=== PATIENT | female | born 1955 | race Caucasian/White ===

== ENCOUNTER → 2017-09-20 16:53 | Outpatient (CLI) | payer OTHER, SELFPAY ==
--- NOTE | 2017-09-20 09:00 | ASPS_PTH ---
PATIENT: MARCELLO OKEEFE [facility][id number] AGE/SX: 70/F ROOM: RE09/20/[address]: Dr. Gómez Tovar MD : [id number] BED: DIS: SPEC #: [id number] RECD: 09/20/17 16:40 STATUS: GRABIEL NIKKI #: [id number] ANANT: 09/20/17 09:[address]: Gómez Tovar DEPT: CYTOLOGY RECD BY: Mert Gottlieb Tissues: A - Thyroid gland, NOS B - Thyroid gland, NOS C - Thyroid isthmus Procedures: Pap Stain (control) Special Stain Group II Cytology Other HEADER OPERATION: Thyroid FNA x3 PRE-OP DIAGNOSIS: Multiple thyroid nodules TISSUE SUBMITTED: A ? Right thyroid (4 slides), B ? Left thyroid (8 slides), C ? Isthmus (6 slides) DIAGNOSIS CYTOLOGY A. Fine needle aspiration, right thyroid nodule (smears): Adequate for evaluation. Negative, consistent with benign follicular nodule. B. Fine needle aspiration, left thyroid nodule (smears): Adequate for evaluation. Negative, consistent with benign follicular nodule. C. Fine needle aspiration, isthmus (smears): Adequate for evaluation. Atypical follicular cells are present. AM:waylon 09/22/17 CYTOLOGY STUDY Slides are reviewed. CYTOLOGY GROSS A - Received are four smears labeled with the patient's name and designated per the requisition as right thyroid. Submitted for staining. B - Received are eight smears labeled with the patient's name and designated per the requisition as left thyroid. Submitted for staining. C - Received are six smears labeled with the patient's name and designated per the requisition as isthmus. Submitted for staining. 09/21/17 TC:? CPT: 10806 x3
== END ==
PROVIDERS: Visit Provider Surgery
DX: E04.1 Nontoxic single thyroid nodule (principal)
CPT/HCPCS: 88161; 88313

== ENCOUNTER → 2018-04-19 12:09 | Outpatient (CLI) | payer OTHER, MEDICARE, SELFPAY ==
[2018-04-19 14:28] LABS: PTHIN 43.2 pg/mL (18.4-80.1)
[2018-04-19 14:39] LABS: AST(SGOT) 20 U/L (15-37); Alanine Aminotransfer ALT/SGPT 25 U/L (13-56); Albumin, Serum 3.5 g/dL (3.2-5.0); Alkaline Phosphatase 93 U/L (45-117); Anion Gap 10 (5-15); BUN 13 mg/dL (7-18); BUN/Creat Ratio 13.7 RATIO (10-20); Calcium,Total 8.8 mg/dL (8.5-10.1); Chloride 104 mmol/L (98-107); Creatinine, Serum 0.95 mg/dL (0.55-1.02); EST Glomerular Filtration Rate 63 mL/min (>60); Est Glom Filt Rate - Afr Amer 76 mL/min (>60); Globulin 3.6 g/dL (2.2-4.2); Glucose 98 mg/dL (74-106); Potassium 3.7 mmol/L (3.5-5.1); Protein, Total 7.1 g/dL (6.4-8.2); Sodium Level 142 mmol/L (136-145); Thyroid Stim Hormone (TSH) 0.82 uIU/mL (0.358-3.74)
[2018-04-20 12:12] LABS: Vitamin D,25 Hydroxy 26.9 ng/mL (29.95-100.01)
== END ==
PROVIDERS: PCP Family Medicine; Visit Provider Internal Medicine Endocrinology, Diabetes & Metabolism
DX: E04.2 Nontoxic multinodular goiter (principal); E55.9 Vitamin D deficiency, unspecified; E21.5 Disorder of parathyroid gland, unspecified; M85.9 Disorder of bone density and structure, unspecified
CPT/HCPCS: 36415; 80053; 82306; 83970; 84443

== ENCOUNTER → 2018-04-21 11:07 | Outpatient (CLI) | payer MEDICARE, OTHER, SELFPAY ==
[2018-04-21 13:49] LABS: Calcium Urine pH Range 2
[2018-04-21 13:50] LABS: 24HR UR TOTAL VOLUME 2000 ml; Urine Calcium (Random) 13.5 (Not Estab.)
[2018-04-27 15:49] LABS: 24HR. Urine Creatinine 1.05 g/24 HR (0.70-1.90)
== END ==
PROVIDERS: Family Provider Family Medicine; PCP Family Medicine; Visit Provider Internal Medicine Endocrinology, Diabetes & Metabolism
DX: E04.2 Nontoxic multinodular goiter (principal); E21.5 Disorder of parathyroid gland, unspecified; M85.9 Disorder of bone density and structure, unspecified; E55.9 Vitamin D deficiency, unspecified
CPT/HCPCS: 81050; 82340; 82570

== ENCOUNTER → 2018-04-22 11:08 | Outpatient (CLI) | payer MEDICARE, OTHER, SELFPAY ==
[2018-04-22 12:58] LABS: 24Hr.Lytes Total Volume 1450 mL
[2018-04-22 12:59] LABS: Sodium 24 HR UR 74 mmol/24h (40-220); Urine Sodium 51 mmol/L (Not Establ.)
== END ==
PROVIDERS: Internal Medicine Endocrinology, Diabetes & Metabolism; Family Provider Family Medicine; PCP Family Medicine; Visit Provider Family Medicine
DX: E04.2 Nontoxic multinodular goiter (principal); E55.9 Vitamin D deficiency, unspecified; E21.5 Disorder of parathyroid gland, unspecified; M85.9 Disorder of bone density and structure, unspecified
CPT/HCPCS: 81050; 82436; 84133; 84300

== ENCOUNTER → 2018-06-03 11:28 | Outpatient (CLI) | payer MEDICARE, SELFPAY ==
[2018-06-03 16:47] LABS: Anion Gap 7 (5-15); BUN 11 mg/dL (7-18); BUN/Creat Ratio 12.7 RATIO (10-20); Calcium,Total 8.4 mg/dL (8.5-10.1); Chloride 107 mmol/L (98-107); Creatinine, Serum 0.87 mg/dL (0.55-1.02); EST Glomerular Filtration Rate 70 mL/min (>60); Est Glom Filt Rate - Afr Amer 85 mL/min (>60); Glucose 109 mg/dL (74-106); Potassium 4.1 mmol/L (3.5-5.1); Sodium Level 142 mmol/L (136-145); Thyroid Stim Hormone (TSH) 0.14 uIU/mL (0.358-3.74)
== END ==
PROVIDERS: Family Provider Family Medicine; PCP Family Medicine; Visit Provider Internal Medicine Endocrinology, Diabetes & Metabolism
DX: E89.0 Postprocedural hypothyroidism (principal)
CPT/HCPCS: 36415; 80048; 84443

== ENCOUNTER → 2018-07-26 15:19 | Outpatient (CLI) | payer MEDICARE, OTHER, SELFPAY ==
[2018-07-26 19:35] LABS: Vitamin D,25 Hydroxy 33.4 ng/mL (29.95-100.01)
[2018-07-26 19:36] LABS: AST(SGOT) 23 U/L (15-37); Alanine Aminotransfer ALT/SGPT 31 U/L (13-56); Albumin, Serum 3.5 g/dL (3.2-5.0); Alkaline Phosphatase 121 U/L (45-117); Anion Gap 9 (5-15); BUN 14 mg/dL (7-18); BUN/Creat Ratio 16.3 RATIO (10-20); Calcium,Total 8.5 mg/dL (8.5-10.1); Chloride 106 mmol/L (98-107); Creatinine, Serum 0.86 mg/dL (0.55-1.02); EST Glomerular Filtration Rate 70 mL/min (>60); Est Glom Filt Rate - Afr Amer 85 mL/min (>60); Globulin 3.6 g/dL (2.2-4.2); Glucose 69 mg/dL (74-106); Potassium 3.9 mmol/L (3.5-5.1); Protein, Total 7.1 g/dL (6.4-8.2); Sodium Level 144 mmol/L (136-145); Thyroid Stim Hormone (TSH) 0.44 uIU/mL (0.358-3.74)
--- OUTSIDE RECORDS SUMMARY | 2018-10-28 04:09 | XMS RPT_ITS ---
:1955 Author Organization OHIP Support Name Relationship Address Phone [facility] Unavailable [address] + [place] [address] VÍCTOR BUTCHER Unavailable Unavailable + [place] [address] [facility] Unavailable [address] + [place] [address] VÍCTOR BUTCHER Unavailable Unavailable + [place] [address] [facility] Unavailable [address] + [place] [address] VÍCTOR BUTCHER Unavailable Unavailable + [place] [address] [facility] Unavailable [address] + [place] [address] VÍCTOR BUTCHER Unavailable Unavailable + [place] [address] [facility] Unavailable [address] + [place] [address] VÍCTOR BUTCHER Unavailable Unavailable + [place] [address] [facility] Unavailable [address] + [place] [address] VÍCTOR BUTCHER Unavailable . + [place] [address] [facility] Unavailable [address] + [place] [address] VÍCTOR BUTCHER Unavailable . + [place] [address] [facility] Unavailable [address] + [place] [address] VÍCTOR BUTCHER Unavailable . + [place] [address] [facility] Unavailable [address] + [place] [address] MALDONADO VÍCTOR Unavailable Unavailable + [place] [address] [facility] Unavailable Unavailable + [place] [address] Care Team Providers Name Role Phone TAM BELL Attending Unavailable Glenn Figueroa Primary Care Unavailable Cebul, Gómez Attending Unavailable Cebul, Gómez Attending Unavailable Cebul Gómez Referring Unavailable Cebul, Gómez Attending Unavailable Schinner, Glenn E Primary Care Unavailable DOCTOR, OUT OF TOWN Attending Unavailable Guy, Gómez Attending Unavailable JohninGlenn vicente Referring Unavailable WANDA VICTORIA Attending Unavailable JULIEN, WANDA Attending Unavailable Carolina, Glenn Pinto Primary Care Unavailable Glenn Figueroa Attending Unavailable Glenn Figueroa Primary Care Unavailable JULIEN, WANDA Attending Unavailable Glenn Figueroa Primary Care Unavailable VÍCTOR MOROCHO MD Attending Unavailable NASIM TOLEDO DO Consulting Unavailable VÍCTOR MOROCHO MD Admitting Unavailable KARLA BURNS, DR. NICOLE Schmitz Consulting Unavailable SABINA SQUIRES DO Consulting Unavailable VÍCTOR MOROCHO MD Consulting Unavailable Víctor Morocho Attending Unavailable PROBLEMS PROBLEMS DATE TYPE CONDITION / CODE ATTENDING STATUS SOURCE 08/25/2018 Unknown E89.0 - DOCTOR, OUT OF Active [place] Postprocedural [facility] hypothyroidism / Hospital E89.0(ICD-10) Repository 06/14/2018 Unknown E04.2 - Nontoxic Glenn Figueroa Active [place] multinodular goiter [facility] / E04.2(ICD-10) Hospital Repository 04/19/2018 Unknown E55.9 - Vitamin D WIETECHA, Active [place] deficiency, [facility] unspecified / Hospital E55.9(ICD-10) Repository 04/19/2018 Unknown 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, 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, [facility] unspecified / Hospital E21.5(ICD-10) Repository 04/19/2018 Unknown M85.9 - Disorder of WIETECHA, Active [place] bone density and [facility] structure, Hospital unspecified / Repository M85.9(ICD-10) 03/17/2018 Admitting Unknown / Gareth Morocho Medical diagnosis UNK(Unknown) Víctor Carrillo [facility] Repository PROCEDURES PROCEDURES No Procedure Records FoundRESULTS RESULTS MISCELLANEOUS LAB Collected: 07/29/2018 Status: F Source: [place] PROCEDURE 12:00 AM [facility] REPOSITORY Order Comment: PATIENT INDICATED THAT THE SAMPLE WAS FROM SECOND VOID OF THE DAY PER [facility] Comments: #[id number] COLLOGEN CROSS LINKED URINE 20ML RF Test(s) Ordered: #[id number] COLLOGEN CROSS LINKED URINE 20ML RF TYPE CODE TESTS RESULT OUT OF RANGE REFERENCE UNITS LAB L801.1541 Normal [facility] TEST Result Comment: TEST RESULT UNITS REF INTERVAL N-Telopeptide, Urine N-telopeptide 113 nmol BCE Not Estab. Creatinine, Urine 51.5 mg/dL Not Estab. N-telo/Creat. Ratio 25 nM BCE/mM Cr 0 - 89 Interpretive Guide: The N-telopeptide and Creatinine are used to calculate the N-telo/Creat. Ratio which is referred to as NTx. Suggested guidelines for the clinical use of NTx are as follows: 1. Menopausal Women not on Hormone Replacement Therapy (HRT): Women with a baseline NTx value >38 are at significant risk for a decrease in bone mineral density (BMD) after 1 year compared to women on HRT. The probability of a decline in BMD increases with NTx value as follows: (1): Baseline NTx Probability of Decrease in BMD 18- 38 1.4 p=0.28 38- 51 2.5 p=0.03 51- 67 3.8 p=0.0006 67-188 17.3 p=0.0001 2. Menopausal Women Receiving Antiresorptive Therapy: The probability that treatment is effective after three months is increased when the measured NTx value is <or=38 nM BCE/mM REMEDY DEVELOPER, or NTx has decreased >or=30% from baseline.[1] 3. Patients with Paget's Disease of Bone: The probability that treatment is effective after one month is increased when the measured NTx value is within the reference range, or NTx has decreased >or=30% from baseline.[2] 1. Tim CH, Radha NH, Manan GS, et al. Am J Med, 102:29-37,1997. (1):M757, 1996. 2. Bone H, Pratima Carrillo, et al. J Bone Min Res.11 (1):M757,1996 TESTING PERFORMED AT [facility]. ORIGINAL REPORT ON FILE IN LAB CONTAINS ADDITIONAL TEST SITE INFORMATION. Performed By: #### L801.1541 #### [facility] [address] [place], [address] VITAMIN D,25 HYDROXY Collected: 07/26/2018 Status: F Source: [place] 3:25 PM [facility] REPOSITORY TYPE CODE TESTS RESULT OUT OF RANGE REFERENCE UNITS LAB L506.1000 29.95-100.01 ng/mL Normal Vitamin D 33.4 25-OH Result Comment: Vitamin D 25(OH) Status Range Deficiency <20 ng/mL (50nmol/L) Insuffciency 20 - 30 ng/mL (50 - 75 nmol/L) Sufficiency 30 - 100 ng/mL (75 - 250 nmol/L) Toxicity >100 ng/mL (>250 nmol/L) Performed By: #### L506.1000 #### [facility] [address] [facility] [place], [address] COMPREHENSIVE METABOLIC Collected: 07/26/2018 Status: F Source: [facility] 3:25 PM [facility] REPOSITORY TYPE CODE TESTS RESULT OUT OF RANGE REFERENCE UNITS LAB L501.0100 74-106 mg/dL Low GLU 69 Result Comment: Please note revised GLUCOSE reference range effective 2017. LAB L501.1000 7-18 mg/dL Normal BUN 14 LAB L501.1100 0.55-1.02 mg/dL Normal CREAT,SERUM 0.86 Result Comment: The validity of the calculated GFR AND GFRAA in patients over 70 years has not been determined. Clinical correlation is essential. LAB L501.1110 >60 mL/min Normal EST GFR 70 Result Comment: Non- GFR Calc LAB L501.1115 >60 mL/min Normal EST GFR - AA 85 Result Comment: GFR Calc LAB L501.1300 10-20 RATIO Normal BUN/CRE 16.3 LAB L501.1500 6.4-8.2 g/dL T Normal PROT 7.1 LAB L501.1800 3.2-5.0 g/dL Normal ALB 3.5 LAB L501.1950 2.2-4.2 g/dL Normal GLOB 3.6 LAB L501.2000 0.9-2.4 RATIO Normal A/G 1.0 LAB L501.2200 8.5-10.1 mg/dL CA Normal 8.5 LAB L501.4100 15-37 U/L Normal AST 23 LAB L501.4305 45-117 U/L High ALK P 121 LAB L501.4405 13-56 U/L Normal ALT 31 LAB L501.4600 0.20-1.00 mg/dL T Normal BILI 0.20 LAB L501.5300 136-145 mmol/L NA Normal 144 LAB L501.5600 3.5-5.1 mmol/L K Normal 3.9 LAB L501.5900 98-107 mmol/L CL Normal 106 LAB L501.6100 21.0-32.0 mmol/L Normal CO2 29.0 LAB L501.6200 5-15 Normal GAP 9 Performed By: #### L500.4050, L501.9520 #### [facility] [address] [place], [place], [address] THYROID STIM HORMONE Collected: 07/26/2018 Status: F Source: [place] (TSH) 3:25 PM [facility] REPOSITORY TYPE CODE TESTS RESULT OUT OF RANGE REFERENCE UNITS LAB L501.9520 0.358-3.74 uIU/mL Normal TSH 0.44 Performed By: #### L500.4050, L501.9520 #### [facility] [address] [place], [place], [address] BASIC METABOLIC Collected: 06/03/2018 Status: F Source: [place] PROFILE (BMP) 11:35 AM [facility] REPOSITORY TYPE CODE TESTS RESULT OUT OF RANGE REFERENCE UNITS LAB L501.0100 74-106 mg/dL High GLU 109 Result Comment: Fasting Glucose result from 100 to 125 mg/dL suggests IMPAIRED HOMEOSTASIS per A.D.A. criteria. Please note revised GLUCOSE reference range effective 2017. LAB L501.1000 7-18 mg/dL Normal BUN 11 LAB L501.1100 0.55-1.02 mg/dL Normal CREAT,SERUM 0.87 Result Comment: The validity of the calculated GFR AND GFRAA in patients over 70 years has not been determined. Clinical correlation is essential. LAB L501.1110 >60 mL/min Normal EST GFR 70 Result Comment: Non- GFR Calc LAB L501.1115 >60 mL/min Normal EST GFR - AA 85 Result Comment: GFR Calc LAB L501.1300 10-20 RATIO Normal BUN/CRE 12.7 LAB L501.2200 8.5-10.1 mg/dL Low CA 8.4 LAB L501.5300 136-145 mmol/L NA Normal 142 LAB L501.5600 3.5-5.1 mmol/L K Normal 4.1 LAB L501.5900 98-107 mmol/L CL Normal 107 LAB L501.6100 21.0-32.0 mmol/L Normal CO2 28.0 LAB L501.6200 5-15 Normal GAP 7 Performed By: #### L500.2500, L501.9520 #### [facility] [address] [facility]. [place], [place], [address] THYROID STIM HORMONE Collected: 06/03/2018 Status: F Source: [place] (TSH) 11:35 AM [facility] REPOSITORY TYPE CODE TESTS RESULT OUT OF RANGE REFERENCE UNITS LAB L501.9520 0.358-3.74 uIU/mL Low TSH 0.14 Performed By: #### L500.2500, L501.9520 #### [facility] [address] [facility] [place], [address] ELECTROLYTES, 24 HR UR Collected: 04/22/2018 Status: F Source: [place] 12:00 AM [facility] REPOSITORY Order Comment: COLLECTION TIME 930 04/21/18 SPECIFIC FOR SODIUM 24HR 950 04/22/18 TYPE CODE TESTS RESULT OUT OF RANGE REFERENCE UNITS LAB L501.5290 mL 1450 Normal UR TOTAL VOLUME LAB L501.5500 Not Establ. mmol/L 51 Normal UR NA LAB L501.5525 40-220 mmol/24h 74 Normal UR NA/24HR LAB L501.5800 Not Establ. mmol/L Test Normal UR K not performed LAB L501.5825 25-125 mmol/24h Test Normal UR K/24 not performed HR LAB L501.6000 Not Establ. mmol/L Test Normal UR CL not performed LAB L501.6025 110-250 mmol/24h Test Normal UR CL/24 not performed hr Performed By: #### L501.5280 #### [facility] [address] [facility]. [place], [place], [address] CALCIUM, URINE 24HR Collected: 04/21/2018 Status: F Source: [place] 12:00 AM [facility] REPOSITORY TYPE CODE TESTS RESULT OUT OF RANGE REFERENCE UNITS LAB L501.2280 Normal Calcium UR pH 2 LAB L501.2281 24.0-24.0 HR Normal UR Collect 24.0 Time LAB L501.2288 ml Normal UR Total 2000 Volume LAB L501.2290 Not Estab. Normal Urine Calcium 13.5 LAB L501.2293 42.0-353.0 mg/24 HR Normal 24HR UR 270.0 Calcium Performed By: #### L500.7000 #### [facility] [address] [facility]. [place], [place], [address] 24 HR URINE CREATININE Collected: 04/21/2018 Status: C Source: [place] 12:00 AM [facility] REPOSITORY TYPE CODE TESTS RESULT OUT OF RANGE REFERENCE UNITS LAB L502.0100 24.0 HOURS Normal UR COLLECT 24.0 TIME LAB L502.0200 L Normal UR TOTAL 2.00 VOLUME Result Comment: AMENDED REPORT 04/27/18 1540 UR TOTAL VOLUME previously reported as: 2000.00 L LAB L502.0300 NO RANGE mg/dL Normal EST. URINE 52.70 CREAT LAB L502.0400 0.70-1.90 g/24 HR Normal 1.05 UR.CREAT/24h r Result Comment: AMENDED REPORT 04/27/18 154 UR.CREAT/24hr previously reported as: 1054.00 H g/24 HR ENTERED INCORRECTLY Performed By: #### L502.000 #### [facility] [address] [place], [address] PTHIN Collected: 04/19/2018 Status: F Source: [place] 12:14 PM [facility] REPOSITORY TYPE CODE TESTS RESULT OUT OF RANGE REFERENCE UNITS LAB L509.1000 18.4-80.1 pg/mL Normal PTHIN 43.2 Performed By: #### L509.1000 #### [facility] [address] [place], [address] COMPREHENSIVE METABOLIC Collected: 04/19/2018 Status: F Source: [facility] 12:14 PM [facility] REPOSITORY TYPE CODE TESTS RESULT OUT OF RANGE REFERENCE UNITS LAB L501.0100 74-106 mg/dL Normal GLU 98 Result Comment: Please note revised GLUCOSE reference range effective 2017. LAB L501.1000 7-18 mg/dL Normal BUN 13 LAB L501.1100 0.55-1.02 mg/dL Normal CREAT,SERUM 0.95 Result Comment: The validity of the calculated GFR AND GFRAA in patients over 70 years has not been determined. Clinical correlation is essential. LAB L501.1110 >60 mL/min Normal EST GFR 63 Result Comment: Non- GFR Calc LAB L501.1115 >60 mL/min Normal EST GFR - AA 76 Result Comment: GFR Calc LAB L501.1300 10-20 RATIO Normal BUN/CRE 13.7 LAB L501.1500 6.4-8.2 g/dL T Normal PROT 7.1 LAB L501.1800 3.2-5.0 g/dL Normal ALB 3.5 LAB L501.1950 2.2-4.2 g/dL Normal GLOB 3.6 LAB L501.2000 0.9-2.4 RATIO Normal A/G 1.0 LAB L501.2200 8.5-10.1 mg/dL CA Normal 8.8 LAB L501.4100 15-37 U/L Normal AST 20 LAB L501.4305 45-117 U/L Normal ALK P 93 LAB L501.4405 13-56 U/L Normal ALT 25 LAB L501.4600 0.20-1.00 mg/dL T Normal BILI 0.40 LAB L501.5300 136-145 mmol/L NA Normal 142 LAB L501.5600 3.5-5.1 mmol/L K Normal 3.7 LAB L501.5900 98-107 mmol/L CL Normal 104 LAB L501.6100 21.0-32.0 mmol/L Normal CO2 28.0 LAB L501.6200 5-15 Normal GAP 10 Performed By: #### L500.4050, L501.9520 #### [facility] [address] [place], [address] THYROID STIM HORMONE Collected: 04/19/2018 Status: F Source: [place] (TSH) 12:14 PM [facility] REPOSITORY TYPE CODE TESTS RESULT OUT OF RANGE REFERENCE UNITS LAB L501.9520 0.358-3.74 uIU/mL Normal TSH 0.82 Performed By: #### L500.4050, L501.9520 #### [facility] [address] [facility] [place], [address] VITAMIN D,25 HYDROXY Collected: 04/19/2018 Status: F Source: [place] 12:14 PM [facility] REPOSITORY TYPE CODE TESTS RESULT OUT OF REFERENCE UNITS RANGE LAB L506.1000 29.95-100.01 ng/mL Low Vitamin D 26.9 25-OH Result Comment: Vitamin D 25(OH) Status Range Deficiency <20 ng/mL (50nmol/L) Insuffciency 20 - 30 ng/mL (50 - 75 nmol/L) Sufficiency 30 - 100 ng/mL (75 - 250 nmol/L) Toxicity >100 ng/mL (>250 nmol/L) Performed By: #### L506.1000 #### [facility] [address] [place], [address] CAION Collected: 04/14/2018 Status: F Source: [facility] 6:26 AM [facility] REPOSITORY TYPE CODE TESTS RESULT OUT OF REFERENCE UNITS RANGE LAB CAION(LOINC 1.12-1.32 mmol/L ) Calcium 1.20 Ionized Performed By: #### CAILUCINA #### [place] [address] PHYLICIA Collected: 04/13/2018 Status: F Source: [facility] 5:57 PM [facility] REPOSITORY TYPE CODE TESTS RESULT OUT OF REFERENCE UNITS RANGE LAB PHYLICIA(LOINC 1.12-1.32 mmol/L ) Low Calcium 1.09 Ionized Performed By: #### CAILUCINA #### [place] [address] FINAL SURGICAL Observed: 04/13/2018 Status: F Source: [facility] PATHOLOGY REPORT 10:00 AM [facility] REPOSITORY . Pathology Reports Accession: Collected Date/Time: Received Date/Time: Pathologist: [id number] 04/13/2018 10:00 EDT 04/13/2018 12:44 EDT MD MARGRET CRONIN Final Surgical Pathology Report DIAGNOSIS: THYROID, TOTAL THYROIDECTOMY: - LYMPHOCYTIC THYROIDITIS WITH MULTINODULAR FOLLICULAR HYPERPLASIA. CLINICAL INFORMATION: Procedure: TOTAL THYROIDECTOMY Preoperative diagnosis: MULTINODULAR (CYSTIC) GOITER NOT OTHERWISE SPECIFIED Postoperative diagnosis: MULTINODULAR (CYSTIC) GOITER NOT OTHERWISE SPECIFIED SPECIMEN: A THYROID - TOTAL GROSS DESCRIPTION: Received in formalin labeled total thyroid is an 18 g, 7.1 x 4.2 x 2 cm product of a total thyroidectomy. There is a long stitch marking the left lobe and a short stitch marking the right lobe. The outer surface is red and ranges from smooth to rough. The specimen is inked and sectioned to show multiple red-ramsey glistening and gelatinous appearing nodules measuring up to 1.2 cm in greatest dimension. The surrounding parenchyma is dark red and shows usual fine architecture. RS -10 1 -4 left lobe 5 -6 isthmus 7 -10 right lobe Dictated by Sridevi LUIS ([facility]) MICROSCOPIC DESCRIPTION: Slides reviewed. Electronically Signed by Pathology Report verified by [facility] Electronically signed by MARGRET CRONIN MD Sign out Date: 04/15/2018 10:14 Performing Lab: [address] Performed By: #### SPFR #### [place] [address] SURGERY VISIT REPORT Observed: 10/01/2017 Status: F Source: [place] 4:57 PM [facility] REPOSITORY [facility] [address] [place] [address] OFFICE VISIT Date of Service: 10/01/17 MR#: [id number] Acct: [id number] Name: BRENDA BUTCHER Rep #: [id number] : 1955 Provider: Gómez Tovar MD Age/Sex: 62/F Location: [facility] Status: Signed Intake Intake Visit Reasons: Post Op Thyroid FNA Chief Complaint: post thyroid FNA x3 Cold Patcher Required: No Is patient in pain?: No Allergies Iodine and Iodide Containing Produc Allergy (Mild, Verified 09/20/17 08:59) rash Sulfa (Sulfonamide Antibiotics) Allergy (Mild, Verified 09/20/17 08:59) rash Medications calcium carbonate 500 mg calcium (1,250 mg) tablet 500 mg PO BID tab 08/31/17 [History Confirmed 09/20/17] ergocalciferol (vitamin D2) 50,000 unit capsule 50,000 unit PO QDAY 08/31/17 [History Confirmed 09/20/17] Is last menstrual period known: No Post menopausal: Yes Patient : No PFSH Medical History Hemorrhoids (Acute) Thyromegaly (Acute) Surgical History S/P skin cancer resection (Acute) S/P thyroid biopsy (Acute) S/P tonsillectomy (Acute) Family History Sister Thyroid disorder Diabetes Mother Thyroid disorder Diabetes Father Colon cancer Social History Smoking Status: Never smoker alcohol intake: never HPI HPI HPI: BRENDA BUTCHER, is a 62 F who presents to the office today for surgical follow-up status post ultrasound-guided fine-needle aspiration of 3 thyroid nodules. Fine-needle aspiration was performed on September 20, 2017. The cytology of the dominant right thyroid nodule was consistent with a benign follicular nodule. The cytology of the left thyroid nodule was consistent with a benign follicular nodule. However the results of the isthmus nodule was atypical follicular cells present. At previous notes reflect the following: MR#:[id number]:[id number] Name: Mihir Butchervishnu #:[id number] : 1955 Provider:Gómez Tovar MD Age/Sex: 62/F Location:[facility] Status:Signed Intake Vital Signs 08/31/17 Blood Pressure 136/94 08/31/17 Height 5 ft 5 in 08/31/17 Weight: 170 lb 8 oz 08/31/17 Body Mass Index (BMI) 28.3 08/31/17 Blood Pressure 169/109 08/31/17 Blood Pressure Location Lt brachial 08/31/17 Blood Pressure Position Sitting 08/31/17 Respiratory Rate 20 08/31/17 Pulse Rate 64 08/31/17 Pulse Ox 100 Intake Visit Reasons: Thyroid Nodules Chief Complaint: thyroid nodules Cold Patcher Required: No Is patient in pain?: No Allergies Iodine and Iodide Containing Produc Allergy (Mild, Verified 08/31/17 13:31) rash Sulfa (Sulfonamide Antibiotics) Allergy (Mild, Verified 08/31/17 13:31) rash Medications calcium carbonate 500 mg calcium (1,250 mg) tablet 500 mg PO BID tab 08/31/17 [History Confirmed 08/31/17] ergocalciferol (vitamin D2) 50,000 unit capsule 50,000 unit PO QDAY 08/31/17 [History Confirmed 08/31/17] Is last menstrual period known: No Post menopausal: Yes Patient : No PFSH Medical History Hemorrhoids (Acute) Thyromegaly (Acute) Surgical History S/P skin cancer resection (Acute) S/P tonsillectomy (Acute) Family History Sister Thyroid disorder Diabetes Mother Thyroid disorder Diabetes Father Colon cancer Social History Smoking Status: Never smoker alcohol intake: never HPI HPI HPI: Brenda Butcher, is a 62 F who presents to the office today for surgical consultation regarding abnormal clinical exam of the thyroid with subsequent ultrasound demonstrating multiple nodules. She has a family history of thyroid disease. Mother had goiter and had surgery. His sister has goiter. She has another sister who is routine annual follow-ups. She has had 2 nieces who have had thyroid cancer. She herself has no symptoms. No neck pain. No dysphagia. No hoarseness. She has not had any radiation treatment. She really establish care with Dr. Merlos. He detected a thyroid abnormality and recommended a thyroid ultrasound which was obtained at the [facility] on August 16, 2017. Findings suggest that there is a 9 mm nodule in the right. In the isthmus there is a 1.5 cm nodule and on the left there is a 1 cm nodule ROS General General: No weight change, appetite, fatigue, colon cancer, breast cancer or weakness HEENT HEENT: No difficulty swallowing, eye injury, eye surgery, swollen glands or hoarseness Endo Endocrine: No thyroid disease, diabetes mellitus, thyroid cancer, Hair loss, heat intolerance or cold intolerance Skin Skin: Yes changing moles; no rash Breast Breast: No left breast lump, right breast lump, nipple discharge, breast pain, abnormal mammogram, abnormal US or breast enlargement Musc Musculoskeletal: No back problems, arthritis, rheumatoid arthritis, gout or joint pain Cardio Cardiovascular: No murmur, pacemaker, heart disease, atrial fibrillation, high blood pressure, heart attack, heart stent, palpitations, shortness of breat with exertion or chest pain Psych Psychiatric: No depression, anxiety or hearing voices Resp Respiratory: No shortness of breath, No sleep apnea, No cough, No COPD, No asthma, No emphysema, No wheezing Gastro Gastrointestinal: No abdominal pain, No nausea or vomiting, No diarrhea, No constipation, No blood in stool, No acid reflux, Yes hemorrhoids, No ulcers, No gallbladder problem, No black,tarry stools Nathan Hematologic: No blood thinners, No blood disorders, No bleeding, No anemia, No blood clots Neuro Neurologic: No system reviewed and no additional complaints, except as docu, No as per HPI, No abnormal walking, No abnormal hearing, No abnormal movements, No abnormal speech, No behavioral changes, No burning sensations, No confusion, No seizure-like activity, No unsteadiness, No dizziness, No localized weakness, No frequent falls, No headache(s), No lack of coordination, No loss of vision, No memory loss, No numbness, No other visual disturbances, No radiating pain, No restless legs, No sensory deficit, No fainting, No tingling, No tremor(s), No weakness, No other Exam Const General: cooperative, healthy appearing, comfortable [facility] Head: normal to inspection Eyes General: appearance normal, both eyes and all related structures Neck Neck: no lymphadenopathy Neck mass: No Carotids: normal carotid upstroke, no bruits Lymphatic: no lymphadenopathy noted Other: Thyroid can be palpated. Slight nodularity particular involving the isthmus. Not seemingly grossly enlarged. Chest Breast Palpation: No nipple discharge Resp Effort AND Inspection: normal respiratory effort Auscultation: clear to auscultation bilaterally Cardio Rate: regular rate Rhythm: regular rhythm Heart Sounds: no murmurs Neuro Other: Chvostek negative Assessment AND Plan 1. Multiple thyroid nodules E04.2 Plan 62-year-old female with multiple thyroid nodules. She has had a 9 millimeter nodule in the right and a 1.5 cm isthmus and a 1cm nodule in the left. I am recommending to her an ultrasound-guided fine-needle aspiration of these nodules. We have discussed the technique, benefits, risks, alternatives. I believe that the procedure has very low risk and that she would be benefited by cytologic evaluation. She has had an opportunity to ask and have questions answered. We will schedule and proceed at her discretion. Additional note the August 11, 2017 TSH was 0.94 and free T4 was 0.88 both within normal range. Cc: Dr. Figueroa. Gómez Tovar M.D., F.A.C.S. Coding Level of Care Code Off vis,new,level 2 Diagnoses Multiple thyroid nodules E04.2 08/31/17 1410<Electronically signed by Gómez Tovar MD> Date Gómez Tovar MD Assessment AND Plan 1. Multiple thyroid nodules E04.2 Plan Today was a 30 minute [id number] consultative appointment. The patient is accompanied with her . We discussed the cytology particularly of the isthmus nodule being atypical. The patient has 2 nieces who had thyroid cancer. We thoroughly discussed treatment options. We discussed total thyroidectomy. The patient is aware then of subsequent need for thyroid replacement. We discussed technique, benefits, risks, alternatives. We discussed the mandatory need for thyroid replacement. We discussed more limited surgical treatment within the potential for redo surgery. At the conclusion of the appointment my recommendation is for total thyroidectomy. She is particularly aware of the potential risks of injury to the recurrent laryngeal nerve or parathyroids. She would like to have an opportunity to discuss with her the proposed options. She will recontact my office with a decision as to how she would like to proceed. I appreciate the ongoing opportunity of assisting with her surgical care Gómez Tovar M.D., F.A.C.S. cc:Dr Figueroa Coding Level of Care Code Off vis,est,level 2 Diagnoses Multiple thyroid nodules E04.2 10/01/17 1657 <Electronically signed by Gómez Tovar MD> Date Gómez Tovar MD Cosigner Signature: Date (if applicable) CC: Glenn Figueroa MD SURGERY VISIT REPORT Observed: 09/20/2017 Status: F Source: [place] 9:33 AM [facility] [address] [place] [address] OFFICE VISIT Date of Service: 09/20/17 MR#: [id number] Acct: [id number] Name: Brenda Butcher Rep #: [id number] : 1955 Provider: Gómez Tovar MD Age/Sex: 62/F Location: [facility] Status: Signed Intake Intake Visit Reasons: BILATERAL X3 THYROID FNA Chief Complaint: thyroid FNA x3 Cold Patcher Required: No Is patient in pain?: No Allergies Iodine and Iodide Containing Produc Allergy (Mild, Verified 09/20/17 08:59) rash Sulfa (Sulfonamide Antibiotics) Allergy (Mild, Verified 09/20/17 08:59) rash Medications calcium carbonate 500 mg calcium (1,250 mg) tablet 500 mg PO BID tab 08/31/17 [History Confirmed 09/20/17] ergocalciferol (vitamin D2) 50,000 unit capsule 50,000 unit PO QDAY 08/31/17 [History Confirmed 09/20/17] Is last menstrual period known: No Post menopausal: Yes Patient : No PFSH Medical History Hemorrhoids (Acute) Thyromegaly (Acute) Surgical History S/P skin cancer resection (Acute) S/P thyroid biopsy (Acute) S/P tonsillectomy (Acute) Family History Sister Thyroid disorder Diabetes Mother Thyroid disorder Diabetes Father Colon cancer Social History Smoking Status: Never smoker alcohol intake: never HPI HPI HPI: Brenda Butcher, is a 62 F who presents to the office today for ultrasound and fine-needle aspiration thyroid nodules 3 Office Procedures FNA Thyroid Performed By: Procedure performed by: allegra Details: Procedure note Ultrasound fine-needle aspiration right thyroid 9 mm nodule and isthmus 1.5 similar nodule and left thyroid 1 cm nodule Timeout and informed consent was obtained. The patient was taken to procedure room. She was placed on the table. The neck was sterilely prepped and draped. 1% lidocaine mixed 50-50 with 0.5% Marcaine was used as a local anesthetic. The right thyroid nodule is identified. Local was instilled. A 25-gauge needle was advanced into the lesion and a rapid pzdx-pwl-wrfdo motion performed. 2 separate passes were performed what appeared to be solid cystic lesion of the right thyroid. A similar technique was used for the isthmus nodule which appeared to be dominant and solid. 3 separate passes were performed if that. The left thyroid lesion appear to have tiny microcalcifications. 4 separate passes were performed of that lesion. With each set of passes specimen was smeared out on slides and treated with fixative. She tolerated procedure well. She was given activity wound care instructions. She will be notified of cytology results as they become available. The isthmus nodule appeared to be uniformly solid. The left thyroid nodule had microcalcifications present. If the cytology is benign then would consider follow-up thyroid ultrasound at 6 months. Gómez Tovar M.D., F.A.C.S. 82597 x 3 Procedure Time Out Time Out Informed consent given: Yes Consent signed: Yes Time out checklist: patient, procedure, site marked/identified, positioning of patient, supplies available, allergies confirmed, team agrees on procedure Time out staff in room: Yes Time out verified: Yes Time out date: 09/20/17 Time out time: 08:59 Assessment AND Plan 1. Multiple thyroid nodules E04.2 Plan The patient will be notified of cytology results as they become available. See the procedure note. Consider follow-up thyroid ultrasound 6 months. Gómez Tovar M.D., F.A.C.S. Orders Orders: Coding Level of Care Code No Charge Diagnoses Multiple thyroid nodules E04.2 Comment 53393 x 3 09/20/17 0933 <Electronically signed by Gómez Tovar MD> Date Gómez Tovar MD Cosigner Signature: Date (if applicable) CC: ASPIRATION (SLIDES Observed: 09/20/2017 Status: F Source: [facility]ILY[place] ONLY) 9:00 AM [facility] REPOSITORY Patient: BRENDA BUTCHER : 1955 (62/F) Acct Num: [id number] Phys: Guy LOZANO,Gómez Unit Num: [id number] Loc: LABSPEC Specimen: [id number] Received: 09/20/171639 Spec Type: ASPIRATION TISSUES TISSUES: A. Thyroid gland, NOS B. Thyroid gland, NOS C. Thyroid isthmus CYTOLOGY GROSS A - Received are four smears labeled with the patient's name and designated per the requisition as right thyroid. Submitted for staining. B - Received are eight smears labeled with the patient's name and designated per the requisition as left thyroid. Submitted for staining. C - Received are six smears labeled with the patient's name and designated per the requisition as isthmus. Submitted for staining. 09/21/17 TC:? CPT: 27137 x3 CYTOLOGY STUDY Slides are reviewed. DIAGNOSIS CYTOLOGY A. Fine needle aspiration, right thyroid nodule (smears): Adequate for evaluation. Negative, consistent with benign follicular nodule. B. Fine needle aspiration, left thyroid nodule (smears): Adequate for evaluation. Negative, consistent with benign follicular nodule. C. Fine needle aspiration, isthmus (smears): Adequate for evaluation. Atypical follicular cells are present. AM:waylon 09/22/17 HEADER OPERATION: Thyroid FNA x3 PRE-OP DIAGNOSIS: Multiple thyroid nodules TISSUE SUBMITTED: A Right thyroid (4 slides), B Left thyroid (8 slides), C Isthmus (6 slides) Signed Artemio Tong 09/22/17 <signature on file> Performed By: #### PASPS #### [facility] [place], [address] ALLERGIES ALLERGIES DATE TYPE / CODE NAME / CODE REACTION SEVERITY SOURCE 09/20/2017 Drug Iodine and Iodide Rash [facility] Allergy/416 Containing Community 524339(SNOM Produc/[id number] Hospital ED CT) (RXNORM) Repository 09/20/2017 Drug Sulfa Rash [facility] Allergy/416 (Sulfonamide Community 550042(SNOM Antibiotics)/F[address]) 227917(RXNORM) Repository ENCOUNTERS ENCOUNTERS ADMIT/DISCHARGE ACCOUNT NUMBER ADMITTING ENCOUNTER LOCATION SOURCE CLASS 07/29/2018 [id number] [facility] ding:LABSPEC Repository 07/26/2018 [id number] [facility] ding:MFPLAB Repository 06/03/2018 [id number] [facility] ding:MFPLAB Repository 04/22/2018 [id number] [facility] ding:LABSPEC Repository 04/21/2018 [id number] [facility] ding:LABSPEC Repository 04/19/2018 [id number] [facility] ding:MFPLAB Repository 04/13/2018/04/14/20 [id number] BAILEE LOZANO, Ambulatory ABuilding:[place] Bryan BUTTS 6ERoom: [place] [address]Bed: A Foundation Repository 03/17/2018 [id number] Inpatient [facility] CenterBuildi Repository ng:H.OR 10/01/2017/10/01/19 [id number] Ambulatory BMSBuilding: [place] 18 BMS.[facility] Repository 09/28/2017 [id number] Ambulatory BMSBuilding: [place] BMS.[facility] Repository 09/20/2017 [id number] Ambulatory [facility] ding:LABSPEC Repository 09/20/2017/09/20/19 [id number] Ambulatory BMSBuilding: [place] 18 BMS.[facility] Repository PAYERS PAYERS ENCOUNTER GUARANTOR PAYER SUBSCRIBER SOURCE 07/29/2018 BRENDA QUINONEZ Primary BRENDA [place] [address] Insurance:MEDICARE PAUSLEYDOB: [place] PART A [facility] [id number] Hospital [address]Mtl: (863) Number: Repository [phone] () [id number] Date:2018-07-29 07/29/2018 Secondary BRENDA Ailyn Insurance:MEDICAL PAUSLEYDOB: [facility] [id number] Hospital Number: Repository [id number] Date:8170-94-07SZ [address] [address]XL: 07/29/2018 Tertiary NOT GIVENUNK [place] Insurance:SELF PAY [facility] Number: Effective Repository Date:2018-07-29 07/26/2018 BRENDA QUINONEZ Primary BRENDA [address] Insurance:MEDICARE PAUSLEYDOB: [place] PART A [facility] [id number] Hospital [address]Dyu: (863) Number: Repository [phone] () [id number] Date:2018-07-26 07/26/2018 Secondary BRENDA [place] Insurance:MEDICAL PAUSLEYDOB: [facility] [id number] Hospital Number: Repository [id number] Date:7745-00-75SL [address] [address]YK: 07/26/2018 Tertiary NOT GIVENUNK [place] Insurance:SELF PAY [facility] Hospital Number: Effective Repository Date:2018-07-26 06/03/2018 BRENDA QUINONEZ Primary BRENDA [place] [address] Insurance:MEDICARE PAUSLEYDOB: [place] PART A [facility] [id number] Hospital [address]Fty: (863) Number: Repository [phone] () [id number] Date:2018-06-03 06/03/2018 Secondary NOT GIVENUNK Ailyn Insurance:SELF PAY [facility] Hospital Number: Effective Repository Date:2018-06-03 04/22/2018 BRENDA QUINONEZ Primary BRENDA [place] [address] Insurance:MEDICARE PAUSLEYDOB: [place] PART A [facility] [id number] Hospital [address]Whp: (863) Number: Repository [phone] () [id number] Date:2018-04-21 04/22/2018 Secondary BRENDA [place] Insurance:MEDICAL PAUSLEYDOB: [facility] [id number] Hospital Number: Repository [id number] Date:8649-79-76NO[address] [address]KK: 04/22/2018 Tertiary NOT GIVENUNK Ailyn Insurance:SELF PAY [facility] Hospital Number: Effective Repository Date:2018-04-21 04/21/2018 BRENDA BUTCHER17 Primary BRENDA Ailyn [address] Insurance:MEDICARE PAUSLEYDOB: [place] PART A [facility] [id number] Hospital [address]Ffr: (863) Number: Repository [phone] () [id number] Date:2018-04-21 04/21/2018 Secondary BRENDA Ailyn Insurance:MEDICAL PAUSLEYDOB: [facility] [id number] Hospital Number: Repository [id number] Date:4726-81-11IR[address] [address]LZ: 04/21/2018 Tertiary NOT GIVENUNK [place] Insurance:SELF PAY [facility] Number: Effective Repository Date:2018-04-21 04/19/2018 BRENDA BUTCHER17 Primary BRENDA Ailyn Bernardo Insurance:MEDICAL PAUSLEYDOB: [facility] [id number] Hospital [address]Jbj: (863) Number: Repository [phone] () [id number] Date:7546-29-29CM [address] [place] [address]ZH: 04/19/2018 Secondary BRENDA [place] Insurance:MEDICARE PAUSLEYDOB: [facility] [id number] Hospital Number: Repository [id number] Date:2018-04-19 04/19/2018 Tertiary NOT GIVENUNK A[place]n Insurance:SELF PAY [facility] Number: Effective Repository Date:2018-04-19 04/13/2018 BRENDA J Primary [facility] PAUSLEYDOB: Insurance:MEDICARE PAUSLEYDOB: [facility] PART B [facility] [id number] Repository JESSICA CLARK, Number: [place] [address]Xit: [id number] [place], [place] Date:2018-03-09 [address]Kjz: [phone] (WD) [id number] Name:[facility] ()Tel: (000) Administrators LLCPO 000-0000 (WP) [address] [place] [address]LQ: 04/13/2018 Secondary [facility] Insurance:MEDICAL PAUSLEYDOB: [facility] [id number] Repository INSC[employer]icy Number: Jackelyn [place] [id number] [place], [place] Date:2017-02-20 346[address]Jul: (452) [id number] [phone] Name:BPO BOX ()Tel: (000) [address] [place], [place] 000-0000 (WP) [address]NZ: 10/01/2017 BRENDA BUTCHER17 Primary BRENDA Ailyn [address] Insurance:MEDICAL PAUSLEYDOB: [facility] [id number] Hospital [address]Cji: (863) Number: Repository [phone] () [id number] Date:6739-09-71[place] [address]301[address]WP: 10/01/2017 Secondary NOT GIVENUNK Ailyn Insurance:SELF PAY [facility] Number: Effective Repository Date:2017-09-24 09/28/2017 BRENDA BUTCHER17 Primary BRENDA [place] [address] Insurance:MEDICAL PAUSLEYDOB: [facility] [id number] Hospital [address]Nek: (863) Number: Repository [phone] () [id number] Date:6886-76-11AG [address] [address]ZG: 09/28/2017 Secondary NOT GIVENUNK A[place]n Insurance:SELF PAY [facility] Number: Effective Repository Date:2017-09-23 09/20/2017 BRENDA BUTCHER17 Primary BRENDA Ailyn [address] Insurance:MEDICAL PAUSLEYDOB: [facility] [id number] Hospital [address]Jgb: (863) Number: Repository [phone] () [id number] Date:6005-04-65WQ [address] [address]SU: 09/20/2017 Secondary NOT GIVENUNK Ailyn Insurance:SELF PAY [facility] Number: Effective Repository Date:2017-09-20 09/20/2017 Brenda Butcher17 Primary Brenda Ailyn [address] Insurance:MEDICAL PausleyDOB: [facility] [id number] Hospital [address]Vqx: (863) Number: Repository [phone] () [id number] Date:6140-19-78QI [address] [address]XQ: 09/20/2017 Secondary NOT GIVENUNK Ailyn Insurance:SELF [facility]Y [facility]: Effective Repository Date:2017-08-31
== END ==
PROVIDERS: Family Provider Family Medicine; PCP Family Medicine
DX: E89.0 Postprocedural hypothyroidism (principal); E55.9 Vitamin D deficiency, unspecified; M81.0 Age-related osteoporosis without current pathological fracture
CPT/HCPCS: 36415; 80053; 82306; 84443

== ENCOUNTER → 2018-07-29 15:04 | Outpatient (CLI) | payer MEDICARE, OTHER, SELFPAY | PROVIDERS: PCP Family Medicine | DX: E89.0 Postprocedural hypothyroidism (principal); M81.0 Age-related osteoporosis without current pathological fracture; E55.9 Vitamin D deficiency, unspecified ==

== ENCOUNTER → 2018-11-30 13:33 | Outpatient (CLI) | payer MEDICARE, OTHER, SELFPAY ==
[2018-11-30 14:39] LABS: Thyroid Stim Hormone (TSH) 0.25 uIU/mL (0.358-3.74)
== END ==
PROVIDERS: Family Provider Family Medicine; PCP Family Medicine; Referring Provider Family Medicine; Visit Provider Internal Medicine Endocrinology, Diabetes & Metabolism
DX: E89.0 Postprocedural hypothyroidism (principal)
CPT/HCPCS: 36415; 84443

== ENCOUNTER → 2019-01-18 09:19 | Outpatient (CLI) | payer MEDICARE, OTHER, SELFPAY ==
[2019-01-18 10:32] LABS: Thyroid Stim Hormone (TSH) 1.96 uIU/mL (0.358-3.74)
== END ==
PROVIDERS: Family Provider Family Medicine; PCP Family Medicine; Referring Provider Family Medicine; Visit Provider Internal Medicine Endocrinology, Diabetes & Metabolism
DX: E89.0 Postprocedural hypothyroidism (principal)
CPT/HCPCS: 36415; 84443

== ENCOUNTER → 2019-04-07 11:21 | Outpatient (CLI) | payer MEDICARE, OTHER, SELFPAY ==
[2019-04-07 14:04] LABS: Vitamin D,25 Hydroxy 31.1 ng/mL (29.95-100.01)
[2019-04-07 14:05] LABS: AST(SGOT) 19 U/L (15-37); Alanine Aminotransfer ALT/SGPT 20 U/L (13-56); Albumin, Serum 3.6 g/dL (3.2-5.0); Alkaline Phosphatase 96 U/L (45-117); Anion Gap 6 (5-15); BUN 15 mg/dL (7-18); BUN/Creat Ratio 16.4 RATIO (10-20); Calcium,Total 8.9 mg/dL (8.5-10.1); Chloride 107 mmol/L (98-107); Creatinine, Serum 0.92 mg/dL (0.55-1.02); EST Glomerular Filtration Rate 65 mL/min (>60); Est Glom Filt Rate - Afr Amer 79 mL/min (>60); Globulin 3.6 g/dL (2.2-4.2); Glucose 103 mg/dL (74-106); Potassium 3.7 mmol/L (3.5-5.1); Protein, Total 7.2 g/dL (6.4-8.2); Sodium Level 143 mmol/L (136-145); Thyroid Stim Hormone (TSH) 1.06 uIU/mL (0.358-3.74)
== END ==
PROVIDERS: Family Provider Family Medicine; PCP Family Medicine; Referring Provider Family Medicine; Visit Provider Internal Medicine Endocrinology, Diabetes & Metabolism
DX: E89.0 Postprocedural hypothyroidism (principal); E55.9 Vitamin D deficiency, unspecified
CPT/HCPCS: 36415; 80053; 82306; 84443

== ENCOUNTER → 2019-06-30 14:51 | Outpatient (CLI) | payer MEDICARE, OTHER, SELFPAY | PROVIDERS: Family Provider Family Medicine; PCP Family Medicine; Referring Provider Family Medicine; Visit Provider Family Medicine | DX: R39.9 Unspecified symptoms and signs involving the genitourinary system (principal) | CPT/HCPCS: 87086 ==

== ENCOUNTER → 2019-07-19 17:13 | Outpatient (CLI) | payer MEDICARE, OTHER, SELFPAY ==
--- NOTE | 2019-07-19 17:18 | RAD_ITS ---
HISTORY: shoulder pain ADDITIONAL HISTORY: None provided. TECHNIQUE: Left shoulder 4 views Number of images including paperwork: 4 COMPARISON: None FINDINGS: BONES: No acute fracture. JOINTS: No subluxation. SOFT TISSUES: No distinct foreign body. RAD/Shoulder min 2 Views IMPRESSION: No acute osseous abnormality. at 0426 Reported and signed by: Nighat Camp MD Electronically Signed: Nighat Camp MD at 4:26 EST Tel , Service support ,
--- NOTE | 2019-07-19 17:18 | RAD_ITS ---
HISTORY: hip pain ADDITIONAL HISTORY: None provided. TECHNIQUE: AP and lateral views of the right hip, AP and lateral views of the left hip and AP pelvis. Number of images including paperwork: 5 COMPARISON: None FINDINGS: BONES: No acute fracture. Degenerative changes of the sepsis pubis. JOINTS: No subluxation. SOFT TISSUES: No distinct foreign body. Calcification adjacent to the right greater tuberosity may indicate calcific tendinitis. RAD/Hips B/L min 2 views w/ Pelvis IMPRESSION: No acute osseous abnormality. at 0789 Reported and signed by: Nighat Camp MD Electronically Signed: Nighat Camp MD at 4:25 EST Tel , Service support ,
--- NOTE | 2019-07-19 17:18 | RAD_ITS ---
HISTORY: shoulder pain ADDITIONAL HISTORY: None provided. TECHNIQUE: Right shoulder 4 views Number of images including paperwork: 4 COMPARISON: None FINDINGS: BONES: No acute fracture. JOINTS: No subluxation. Mild degenerative changes. SOFT TISSUES: No distinct foreign body. Right neck surgical clips. RAD/Shoulder min 2 Views IMPRESSION: Degenerative changes without acute osseous abnormality. at 0428 Reported and signed by: Nighat Camp MD Electronically Signed: Nighat Camp MD at 4:28 EST Tel , Service support ,
== END ==
PROVIDERS: Family Provider Family Medicine; PCP Family Medicine; Referring Provider Family Medicine; Visit Provider Family Medicine
DX: M19.011 Primary osteoarthritis, right shoulder (principal); M25.512 Pain in left shoulder; M25.552 Pain in left hip; M25.551 Pain in right hip
CPT/HCPCS: 73030; 73521

== ENCOUNTER → 2019-09-08 15:42 | Outpatient (CLI) | payer MEDICARE, OTHER, SELFPAY ==
[2019-09-08 17:45] LABS: Absolute Lymphocyte Count 2.05 X10^3/uL (0.83-4.51); Absolute Neutrophil Count 4.8 X10^3/uL (2.0-7.7); Basophil# 0.09 X10^3/uL; Basophil% 1.2 % (0-1); Eosinophil# 0.21 X10^3/uL; Eosinophils% 2.7 % (0-5); Hematocrit 38.7 % (37-47); Lymphocyte # 2.05 X10^3/ul (4.0); Lymphocyte % 26.7 % (19-41); Mean Corpuscular Hgb 29.6 pg (27.0-32.0); Mean Corpuscular Volume 95.6 fL (81-99); Mean Platelet Vol. 10.2 fl (6.2-12.0); Monocyte% 6.5 % (0-10); NRBC Flagged by Analyzer 0 % (0-5); Neutrophil # 4.83 X10^3/uL (2.7-7.7); Neutrophil % 62.8 % (47-70); Platelet Count 294 K/mm3 (150-450); RBC Distribution Width CV 13.1 % (11.6-14.6); RBC Distribution Width SD 46.4 fl (35.1-43.9); Red Blood Count 4.05 M/mm3 (4.2-5.4); White Blood Count 7.7 K/mm3 (4.4-11.0)
[2019-09-08 17:48] LABS: ALB/GLOB Ratio 0.8 RATIO (0.9-2.4); AST(SGOT) 23 U/L (15-37); Alanine Aminotransfer ALT/SGPT 22 U/L (13-56); Albumin, Serum 3.4 g/dL (3.2-5.0); Alkaline Phosphatase 101 U/L (45-117); Anion Gap 3 (5-15); BUN 20 mg/dL (7-18); BUN/Creat Ratio 23.8 RATIO (10-20); CRP 5.08 mg/L (0.0-3.0); Calcium,Total 8.9 mg/dL (8.5-10.1); Chloride 104 mmol/L (98-107); Creatinine, Serum 0.84 mg/dL (0.55-1.02); EST Glomerular Filtration Rate 72 mL/min (>60); Est Glom Filt Rate - Afr Amer 87 mL/min (>60); Globulin 4.3 g/dL (2.2-4.2); Glucose 85 mg/dL (74-106); Potassium 3.6 mmol/L (3.5-5.1); Protein, Total 7.7 g/dL (6.4-8.2); Sodium Level 138 mmol/L (136-145)
[2019-09-08 17:54] LABS: Vitamin D,25 Hydroxy 50.6 ng/mL (29.95-100.01)
[2019-09-08 17:58] LABS: Erythrocyte Sedimentation Rate 24 mm/hr (0-30)
[2019-09-08 18:05] LABS: PTHIN 40.2 pg/mL (18.4-80.1)
== END ==
PROVIDERS: PCP Family Medicine; Referring Provider Family Medicine; Visit Provider Internal Medicine Endocrinology, Diabetes & Metabolism
DX: E89.0 Postprocedural hypothyroidism (principal); M81.0 Age-related osteoporosis without current pathological fracture; E55.9 Vitamin D deficiency, unspecified; M15.8 Other polyosteoarthritis; E04.2 Nontoxic multinodular goiter
CPT/HCPCS: 36415; 80053; 82306; 83970; 85025; 85652; 86140

== ENCOUNTER → 2019-09-21 08:53 | Outpatient (CLI) | payer MEDICARE, OTHER, SELFPAY ==
[2019-09-21 10:31] LABS: Rheumatoid Factor < 10.0 IU/mL (<15)
[2019-09-21 10:38] LABS: ALB/GLOB Ratio 0.9 RATIO (0.9-2.4); AST(SGOT) 20 U/L (15-37); Alanine Aminotransfer ALT/SGPT 21 U/L (13-56); Albumin, Serum 3.9 g/dL (3.2-5.0); Alkaline Phosphatase 94 U/L (45-117); Anion Gap 5 (5-15); BUN 20 mg/dL (7-18); BUN/Creat Ratio 22.1 RATIO (10-20); CRP 2.93 mg/L (0.0-3.0); Chloride 104 mmol/L (98-107); Creatinine, Serum 0.91 mg/dL (0.55-1.02); EST Glomerular Filtration Rate 66 mL/min (>60); Est Glom Filt Rate - Afr Amer 80 mL/min (>60); Globulin 4.2 g/dL (2.2-4.2); Glucose 82 mg/dL (74-106); Potassium 3.6 mmol/L (3.5-5.1); Protein, Total 8.1 g/dL (6.4-8.2); Sodium Level 138 mmol/L (136-145); Thyroid Stim Hormone (TSH) 2.73 uIU/mL (0.358-3.74)
[2019-09-22 13:47] LABS: ANTINUCLEAR ANTIBODIES DIRECT Positive (Negative)
== END ==
PROVIDERS: Internal Medicine Endocrinology, Diabetes & Metabolism; PCP Family Medicine; Referring Provider Family Medicine; Visit Provider Family Medicine
DX: E89.0 Postprocedural hypothyroidism (principal); M15.8 Other polyosteoarthritis; M25.50 Pain in unspecified joint
CPT/HCPCS: 36415; 80053; 84443; 86038; 86140; 86431

== ENCOUNTER → 2019-12-20 10:13 | Outpatient (CLI) | payer MEDICARE, OTHER, SELFPAY ==
--- NOTE | 2019-12-20 10:19 | RAD_ITS ---
STUDY: X-RAY - PELVIS REASON FOR EXAM: Female, 64 years old. Inflammatory polyarthropathy TECHNIQUE: One view of the pelvis was obtained. COMPARISON: None. FINDINGS: There is a non-specific bowel gas pattern. There are multiple calcified phleboliths. Normal bilateral iliac wings, sacroiliac joints and visualized sacrum. Normal visualized bilateral superior and inferior pubic rami. There is narrowing with sclerosis of the pubic symphysis. Normal ischial tuberosities. Normal visualized right femoral head. Normal right acetabulum. Normal right hip joint. Normal visualized left femoral head. Normal left acetabulum. Normal left hip joint. RAD/Pelvis 1 or 2 Views IMPRESSION: Degenerative changes of the symphysis pubis. Electronically Signed: Vargas Monson, at 10:42 EDT , Service support ,
[2019-12-20 11:22] LABS: EXAGEN MAILED SPECIMEN
[2019-12-20 12:39] LABS: Erythrocyte Sedimentation Rate 4 mm/hr (0-30)
[2019-12-20 12:41] LABS: Absolute Lymphocyte Count 2.06 X10^3/uL (0.83-4.51); Absolute Neutrophil Count 4.5 X10^3/uL (2.0-7.7); Basophil% 1.4 % (0-1); Eosinophil# 0.13 X10^3/uL; Eosinophils% 1.8 % (0-5); Hemoglobin 14.5 g/dL (12.0-15.0); Lymphocyte # 2.06 X10^3/ul (4.0); Lymphocyte % 28.1 % (19-41); Mean Corp Hgb Conc 32.2 g/dL (32-36); Mean Corpuscular Hgb 31.5 pg (27.0-32.0); Mean Corpuscular Volume 97.6 fL (81-99); Mean Platelet Vol. 10.5 fl (6.2-12.0); Monocyte# 0.55 X10^3/uL; Monocyte% 7.5 % (0-10); NRBC Flagged by Analyzer 0 % (0-5); Neutrophil # 4.47 X10^3/uL (2.7-7.7); Neutrophil % 60.9 % (47-70); Platelet Count 233 K/mm3 (150-450); RBC Distribution Width CV 13.2 % (11.6-14.6); Red Blood Count 4.61 M/mm3 (4.2-5.4); White Blood Count 7.3 K/mm3 (4.4-11.0)
[2019-12-20 12:49] LABS: Protein, Urine (Random) < 6.0 mg/dL (<11.9)
[2019-12-20 12:51] LABS: ALB/GLOB Ratio 1.1 RATIO (0.9-2.4); AST(SGOT) 23 U/L (15-37); Alanine Aminotransfer ALT/SGPT 26 U/L (13-56); Albumin, Serum 4.1 g/dL (3.2-5.0); Alkaline Phosphatase 88 U/L (45-117); Anion Gap 6 (5-15); BUN 15 mg/dL (7-18); BUN/Creat Ratio 17.5 RATIO (10-20); CRP < 2.90 mg/L (0.0-3.0); Calcium,Total 9.3 mg/dL (8.5-10.1); Chloride 104 mmol/L (98-107); Creatinine, Serum 0.86 mg/dL (0.55-1.02); EST Glomerular Filtration Rate 70 mL/min (>60); Est Glom Filt Rate - Afr Amer 85 mL/min (>60); Globulin 3.9 g/dL (2.2-4.2); Glucose 87 mg/dL (74-106); Potassium 3.4 mmol/L (3.5-5.1); Sodium Level 140 mmol/L (136-145)
[2019-12-20 12:54] LABS: Color, Urine Yellow (Yellow); Glucose, Dipstick Normal (Normal); Ketone-Dipstick Negative (Negative); Leukocyte Esterase-Dipstick Negative /ul (Negative); Nitrite-Dipstick Negative (Negative); Occult Blood-Urine 10 /ul (Negative); Protein-Dipstick Negative (Negative); Specific Gravity, Urine 1.015 (1.002-1.030); Urine Bilirubin Dipstick Negative (Negative); Urine Clarity Sl. Cloudy (Clear); Urine Urobilinogen Normal (Normal); Urine pH 6.5 (5.0 - 8.0)
[2019-12-20 13:20] LABS: Hepatitis B Surface Antibody Reactive; Hepatitis B Surface Antigen Non-Reactive (Nonreactive); Hepatitis C Antibody Non-Reactive (Nonreactive)
[2019-12-21 11:23] LABS: Hepatitis B Core AB IgM Negative (Negative)
== END ==
PROVIDERS: PCP Family Medicine; Referring Provider Internal Medicine Rheumatology; Visit Provider Internal Medicine Rheumatology
DX: M06.4 Inflammatory polyarthropathy (principal); R76.8 Other specified abnormal immunological findings in serum; E03.9 Hypothyroidism, unspecified; M81.0 Age-related osteoporosis without current pathological fracture
CPT/HCPCS: 36415; 72170; 80053; 81002; 82570; 84156; 85025; 85652; 86140; 86705; 86706; 86803; 87340

== ENCOUNTER → 2020-01-19 10:08 | Outpatient (CLI) | payer MEDICARE, OTHER, SELFPAY ==
[2020-01-19 12:29] LABS: Vitamin D,25 Hydroxy 75.5 ng/mL
[2020-01-19 12:47] LABS: AST(SGOT) 23 U/L (15-37); Alanine Aminotransfer ALT/SGPT 27 U/L (13-56); Albumin, Serum 3.6 g/dL (3.2-5.0); Alkaline Phosphatase 80 U/L (45-117); Anion Gap 6 (5-15); BUN 15 mg/dL (7-18); BUN/Creat Ratio 17.9 RATIO (10-20); Calcium,Total 8.8 mg/dL (8.5-10.1); Chloride 105 mmol/L (98-107); Cholesterol 165 mg/dL (200); Creatinine, Serum 0.84 mg/dL (0.55-1.02); EST Glomerular Filtration Rate 72 mL/min (>60); Est Glom Filt Rate - Afr Amer 87 mL/min (>60); Globulin 3.6 g/dL (2.2-4.2); Glucose 80 mg/dL (74-106); High Density Lipoprotein 52 mg/dL; Potassium 3.9 mmol/L (3.5-5.1); Protein, Total 7.2 g/dL (6.4-8.2); Sodium Level 140 mmol/L (136-145); Triglycerides 93 mg/dL; Very Low Density Lipoprotein 19 mg/dL (5-40)
== END ==
PROVIDERS: Internal Medicine Endocrinology, Diabetes & Metabolism; PCP Family Medicine; Visit Provider Internal Medicine Rheumatology
DX: M06.4 Inflammatory polyarthropathy (principal); R76.8 Other specified abnormal immunological findings in serum; M81.0 Age-related osteoporosis without current pathological fracture; E89.0 Postprocedural hypothyroidism; E78.2 Mixed hyperlipidemia; E55.9 Vitamin D deficiency, unspecified
CPT/HCPCS: 36415; 80053; 80061; 82306; 84443

== ENCOUNTER → 2020-02-15 15:27 | Outpatient (CLI) | payer MEDICARE, OTHER, SELFPAY ==
[2020-02-15 17:41] LABS: Anion Gap 4 (5-15); BUN 17 mg/dL (7-18); BUN/Creat Ratio 17.4 RATIO (10-20); Calcium,Total 8.7 mg/dL (8.5-10.1); Chloride 103 mmol/L (98-107); Creatinine, Serum 0.98 mg/dL (0.55-1.02); EST Glomerular Filtration Rate 60 mL/min (>60); Est Glom Filt Rate - Afr Amer 73 mL/min (>60); Glucose 87 mg/dL (74-106); Potassium 3.7 mmol/L (3.5-5.1); Sodium Level 138 mmol/L (136-145)
== END ==
PROVIDERS: PCP Family Medicine; Referring Provider Family Medicine; Visit Provider Internal Medicine Endocrinology, Diabetes & Metabolism
DX: M81.0 Age-related osteoporosis without current pathological fracture (principal)
CPT/HCPCS: 36415; 80048

== ENCOUNTER → 2020-03-29 13:59 | Outpatient (CLI) | payer MEDICARE, OTHER, SELFPAY ==
[2020-03-29 15:16] LABS: Absolute Lymphocyte Count 1.84 X10^3/uL (0.83-4.51); Absolute Neutrophil Count 4.1 X10^3/uL (2.0-7.7); Basophil# 0.08 X10^3/uL; Basophil% 1.2 % (0-1); Eosinophil# 0.04 X10^3/uL; Eosinophils% 0.6 % (0-5); Hematocrit 41.5 % (37-47); Hemoglobin 13.3 g/dL (12.0-15.0); Lymphocyte # 1.84 X10^3/ul (4.0); Lymphocyte % 28.2 % (19-41); Mean Corpuscular Hgb 31.8 pg (27.0-32.0); Mean Corpuscular Volume 99.3 fL (81-99); Mean Platelet Vol. 10.2 fl (6.2-12.0); Monocyte# 0.44 X10^3/uL; Monocyte% 6.7 % (0-10); NRBC Flagged by Analyzer 0 % (0-5); Neutrophil # 4.11 X10^3/uL (2.7-7.7); Neutrophil % 63.1 % (47-70); Platelet Count 256 K/mm3 (150-450); RBC Distribution Width CV 12.4 % (11.6-14.6); RBC Distribution Width SD 45.4 fl (35.1-43.9); Red Blood Count 4.18 M/mm3 (4.2-5.4); White Blood Count 6.5 K/mm3 (4.4-11.0)
[2020-03-29 15:59] LABS: ALB/GLOB Ratio 0.9 RATIO (0.9-2.4); AST(SGOT) 29 U/L (15-37); Alanine Aminotransfer ALT/SGPT 41 U/L (13-56); Albumin, Serum 3.6 g/dL (3.2-5.0); Alkaline Phosphatase 75 U/L (45-117); Anion Gap 3 (5-15); BUN 15 mg/dL (7-18); BUN/Creat Ratio 16.9 RATIO (10-20); Calcium,Total 8.6 mg/dL (8.5-10.1); Chloride 107 mmol/L (98-107); Creatinine, Serum 0.89 mg/dL (0.55-1.02); EST Glomerular Filtration Rate 68 mL/min (>60); Est Glom Filt Rate - Afr Amer 82 mL/min (>60); Globulin 3.8 g/dL (2.2-4.2); Glucose 136 mg/dL (74-106); Potassium 3.4 mmol/L (3.5-5.1); Protein, Total 7.4 g/dL (6.4-8.2); Sodium Level 141 mmol/L (136-145)
== END ==
PROVIDERS: PCP Family Medicine; Referring Provider Family Medicine; Visit Provider Internal Medicine Rheumatology
DX: M06.4 Inflammatory polyarthropathy (principal); E03.9 Hypothyroidism, unspecified; M81.0 Age-related osteoporosis without current pathological fracture; R76.8 Other specified abnormal immunological findings in serum
CPT/HCPCS: 36415; 80053; 85025

== ENCOUNTER → 2020-04-19 16:09 | Outpatient (CLI) | payer MEDICARE, OTHER, SELFPAY ==
[2020-04-19 17:46] LABS: Absolute Lymphocyte Count 2.38 X10^3/uL (0.83-4.51); Absolute Neutrophil Count 3.6 X10^3/uL (2.0-7.7); Basophil# 0.08 X10^3/uL; Basophil% 1.2 % (0-1); Eosinophil# 0.11 X10^3/uL; Eosinophils% 1.6 % (0-5); Hemoglobin 13.1 g/dL (12.0-15.0); Lymphocyte # 2.38 X10^3/ul (4.0); Lymphocyte % 35.6 % (19-41); Mean Corp Hgb Conc 31.2 g/dL (32-36); Mean Corpuscular Hgb 30.6 pg (27.0-32.0); Mean Corpuscular Volume 98.1 fL (81-99); Mean Platelet Vol. 10.5 fl (6.2-12.0); Monocyte# 0.47 X10^3/uL; NRBC Flagged by Analyzer 0 % (0-5); Neutrophil # 3.63 X10^3/uL (2.7-7.7); Neutrophil % 54.3 % (47-70); Platelet Count 268 K/mm3 (150-450); RBC Distribution Width CV 12.2 % (11.6-14.6); RBC Distribution Width SD 44.5 fl (35.1-43.9); Red Blood Count 4.28 M/mm3 (4.2-5.4); White Blood Count 6.7 K/mm3 (4.4-11.0)
[2020-04-19 18:12] LABS: ALB/GLOB Ratio 0.9 RATIO (0.9-2.4); AST(SGOT) 29 U/L (15-37); Alanine Aminotransfer ALT/SGPT 33 U/L (13-56); Albumin, Serum 3.6 g/dL (3.2-5.0); Alkaline Phosphatase 92 U/L (45-117); Anion Gap 5 (5-15); BUN 17 mg/dL (7-18); BUN/Creat Ratio 17.3 RATIO (10-20); Calcium,Total 8.7 mg/dL (8.5-10.1); Chloride 103 mmol/L (98-107); Creatinine, Serum 0.98 mg/dL (0.55-1.02); EST Glomerular Filtration Rate 60 mL/min (>60); Est Glom Filt Rate - Afr Amer 73 mL/min (>60); Ferritin 199 ng/mL (8-252); Glucose 73 mg/dL (74-106); Iron 70 ug/dL (50-170); Potassium 3.7 mmol/L (3.5-5.1); Protein, Total 7.6 g/dL (6.4-8.2); Sodium Level 140 mmol/L (136-145); Thyroid Stim Hormone (TSH) 1.06 uIU/mL (0.358-3.74)
== END ==
PROVIDERS: PCP Family Medicine; Referring Provider Family Medicine; Visit Provider Internal Medicine Endocrinology, Diabetes & Metabolism
DX: M81.0 Age-related osteoporosis without current pathological fracture (principal); E89.0 Postprocedural hypothyroidism; E21.5 Disorder of parathyroid gland, unspecified; E55.9 Vitamin D deficiency, unspecified; D50.9 Iron deficiency anemia, unspecified
CPT/HCPCS: 36415; 80053; 82306; 82728; 83540; 83970; 84443; 85025

== ENCOUNTER → 2020-07-12 11:19 | Outpatient (CLI) | payer MEDICARE, OTHER, SELFPAY ==
[2020-07-12 15:10] LABS: Absolute Lymphocyte Count 2.03 X10^3/uL (0.83-4.51); Absolute Neutrophil Count 3.6 X10^3/uL (2.0-7.7); Basophil# 0.08 X10^3/uL; Basophil% 1.3 % (0-1); Eosinophil# 0.08 X10^3/uL; Eosinophils% 1.3 % (0-5); Hemoglobin 13.2 g/dL (12.0-15.0); Lymphocyte # 2.03 X10^3/ul (4.0); Lymphocyte % 32.8 % (19-41); Mean Corp Hgb Conc 31.4 g/dL (32-36); Mean Corpuscular Hgb 31.1 pg (27.0-32.0); Mean Corpuscular Volume 99.1 fL (81-99); Monocyte# 0.37 X10^3/uL; NRBC Flagged by Analyzer 0 % (0-5); Neutrophil % 58.3 % (47-70); Platelet Count 267 K/mm3 (150-450); RBC Distribution Width CV 12.5 % (11.6-14.6); Red Blood Count 4.24 M/mm3 (4.2-5.4); White Blood Count 6.2 K/mm3 (4.4-11.0)
[2020-07-12 15:48] LABS: AST(SGOT) 28 U/L (15-37); Alanine Aminotransfer ALT/SGPT 34 U/L (13-56); Albumin, Serum 3.6 g/dL (3.2-5.0); Alkaline Phosphatase 78 U/L (45-117); Anion Gap 5 (5-15); BUN 13 mg/dL (7-18); Calcium,Total 9.3 mg/dL (8.5-10.1); Chloride 104 mmol/L (98-107); Creatinine, Serum 0.72 mg/dL (0.55-1.02); EST Glomerular Filtration Rate 85 mL/min (>60); Est Glom Filt Rate - Afr Amer 103 mL/min (>60); Globulin 3.7 g/dL (2.2-4.2); Glucose 95 mg/dL (74-106); Potassium 3.7 mmol/L (3.5-5.1); Protein, Total 7.3 g/dL (6.4-8.2); Sodium Level 138 mmol/L (136-145)
== END ==
PROVIDERS: PCP Family Medicine; Referring Provider Family Medicine; Visit Provider Internal Medicine Rheumatology
DX: M06.4 Inflammatory polyarthropathy (principal); E03.9 Hypothyroidism, unspecified; M81.0 Age-related osteoporosis without current pathological fracture; R76.8 Other specified abnormal immunological findings in serum
CPT/HCPCS: 36415; 80053; 85025

== ENCOUNTER → 2020-09-06 14:47 | Outpatient (CLI) | payer MEDICARE, OTHER, SELFPAY ==
[2020-09-06 18:05] LABS: ALB/GLOB Ratio 0.9 RATIO (0.9-2.4); AST(SGOT) 22 U/L (15-37); Alanine Aminotransfer ALT/SGPT 22 U/L (13-56); Albumin, Serum 3.4 g/dL (3.2-5.0); Alkaline Phosphatase 64 U/L (45-117); Anion Gap 5 (5-15); BUN 14 mg/dL (7-18); BUN/Creat Ratio 16.9 RATIO (10-20); Calcium,Total 8.8 mg/dL (8.5-10.1); Chloride 104 mmol/L (98-107); Creatinine, Serum 0.83 mg/dL (0.55-1.02); EST Glomerular Filtration Rate 73 mL/min (>60); Est Glom Filt Rate - Afr Amer 88 mL/min (>60); Globulin 3.6 g/dL (2.2-4.2); Glucose 119 mg/dL (74-106); Potassium 3.2 mmol/L (3.5-5.1); Sodium Level 140 mmol/L (136-145); Thyroid Stim Hormone (TSH) 0.22 uIU/mL (0.358-3.74)
[2020-09-07 08:52] LABS: PTHIN 30.5 pg/mL (18.4-80.1)
== END ==
PROVIDERS: PCP Family Medicine; Referring Provider Family Medicine; Visit Provider Internal Medicine Endocrinology, Diabetes & Metabolism
DX: M81.0 Age-related osteoporosis without current pathological fracture (principal); E89.0 Postprocedural hypothyroidism; E21.5 Disorder of parathyroid gland, unspecified; E55.9 Vitamin D deficiency, unspecified
CPT/HCPCS: 36415; 80053; 82306; 83970; 84443

== ENCOUNTER → 2020-09-28 11:19 | Outpatient (CLI) | payer MEDICARE, OTHER, SELFPAY ==
[2020-09-28 12:18] LABS: Anion Gap 3 (5-15); BUN 19 mg/dL (7-18); BUN/Creat Ratio 21.3 RATIO (10-20); Calcium,Total 9.2 mg/dL (8.5-10.1); Chloride 105 mmol/L (98-107); Creatinine, Serum 0.89 mg/dL (0.55-1.02); EST Glomerular Filtration Rate 67 mL/min (>60); Est Glom Filt Rate - Afr Amer 81 mL/min (>60); Glucose 72 mg/dL (74-106); Potassium 3.5 mmol/L (3.5-5.1); Sodium Level 140 mmol/L (136-145)
== END ==
PROVIDERS: PCP Family Medicine; Referring Provider Nurse Practitioner Adult Health; Visit Provider Nurse Practitioner Adult Health
DX: M81.0 Age-related osteoporosis without current pathological fracture (principal)
CPT/HCPCS: 36415; 80048

== ENCOUNTER → 2020-11-05 13:54 | Outpatient (CLI) | payer MEDICARE, OTHER, SELFPAY ==
[2020-11-05 15:53] LABS: Anion Gap 3 (5-15); BUN 17 mg/dL (7-18); BUN/Creat Ratio 21.1 RATIO (10-20); Chloride 104 mmol/L (98-107); Creatinine, Serum 0.81 mg/dL (0.55-1.02); EST Glomerular Filtration Rate 75 mL/min (>60); Est Glom Filt Rate - Afr Amer 91 mL/min (>60); Glucose 62 mg/dL (74-106); Potassium 3.6 mmol/L (3.5-5.1); Sodium Level 140 mmol/L (136-145)
== END ==
PROVIDERS: PCP Family Medicine; Referring Provider Family Medicine; Visit Provider Nurse Practitioner Adult Health
DX: E87.6 Hypokalemia (principal)
CPT/HCPCS: 36415; 80048

== ENCOUNTER → 2020-12-31 15:20 | Outpatient (CLI) | payer MEDICARE, OTHER, SELFPAY ==
[2020-12-31 17:40] LABS: Absolute Lymphocyte Count 2.14 X10^3/uL (0.83-4.51); Absolute Neutrophil Count 4.1 X10^3/uL (2.0-7.7); Basophil# 0.08 X10^3/uL; Basophil% 1.2 % (0-1); Eosinophil# 0.09 X10^3/uL; Eosinophils% 1.3 % (0-5); Hematocrit 37.9 % (37-47); Hemoglobin 12.2 g/dL (12.0-15.0); Lymphocyte # 2.14 X10^3/ul (0.83-4.51); Lymphocyte % 31.1 % (19-41); Mean Corp Hgb Conc 32.2 g/dL (32-36); Mean Corpuscular Hgb 31.4 pg (27.0-32.0); Mean Corpuscular Volume 97.7 fL (81-99); Mean Platelet Vol. 10.4 fl (6.2-12.0); Monocyte# 0.49 X10^3/uL; Monocyte% 7.1 % (0-10); NRBC Flagged by Analyzer 0 % (0-5); Neutrophil # 4.07 X10^3/uL (2.7-7.7); Platelet Count 250 K/mm3 (150-450); RBC Distribution Width CV 12.2 % (11.6-14.6); RBC Distribution Width SD 43.7 fl (35.1-43.9); Red Blood Count 3.88 M/mm3 (4.2-5.4); White Blood Count 6.9 K/mm3 (4.4-11.0)
[2020-12-31 18:22] LABS: ALB/GLOB Ratio 1.1 RATIO (0.9-2.4); AST(SGOT) 31 U/L (15-37); Alanine Aminotransfer ALT/SGPT 38 U/L (13-56); Albumin, Serum 3.5 g/dL (3.2-5.0); Alkaline Phosphatase 74 U/L (45-117); Anion Gap 6 (5-15); BUN 18 mg/dL (7-18); BUN/Creat Ratio 20.7 RATIO (10-20); Calcium,Total 8.7 mg/dL (8.5-10.1); Chloride 104 mmol/L (98-107); Creatinine, Serum 0.87 mg/dL (0.55-1.02); EST Glomerular Filtration Rate 69 mL/min (>60); Est Glom Filt Rate - Afr Amer 84 mL/min (>60); Globulin 3.1 g/dL (2.2-4.2); Glucose 86 mg/dL (74-106); Potassium 3.7 mmol/L (3.5-5.1); Protein, Total 6.6 g/dL (6.4-8.2); Sodium Level 141 mmol/L (136-145); Thyroid Stim Hormone (TSH) 1.42 uIU/mL (0.358-3.74)
== END ==
PROVIDERS: PCP Family Medicine; Referring Provider Family Medicine; Visit Provider Internal Medicine Endocrinology, Diabetes & Metabolism
DX: M06.4 Inflammatory polyarthropathy (principal); M81.0 Age-related osteoporosis without current pathological fracture; E89.0 Postprocedural hypothyroidism; R76.8 Other specified abnormal immunological findings in serum
CPT/HCPCS: 36415; 80053; 84443; 85025

== ENCOUNTER → 2021-02-20 14:29 | Outpatient (CLI) | payer MEDICARE, OTHER, SELFPAY ==
[2021-02-20 17:55] LABS: Anion Gap 7 (5-15); BUN 16 mg/dL (7-18); BUN/Creat Ratio 17.1 RATIO (10-20); Calcium,Total 8.8 mg/dL (8.5-10.1); Chloride 101 mmol/L (98-107); Creatinine, Serum 0.94 mg/dL (0.55-1.02); EST Glomerular Filtration Rate 63 mL/min (>60); Est Glom Filt Rate - Afr Amer 77 mL/min (>60); Glucose 113 mg/dL (74-106); Magnesium 2.1 mg/dL (1.6-2.6); Potassium 3.6 mmol/L (3.5-5.1); Sodium Level 139 mmol/L (136-145)
== END ==
PROVIDERS: PCP Family Medicine; Referring Provider Family Medicine; Visit Provider Internal Medicine Endocrinology, Diabetes & Metabolism
DX: M81.0 Age-related osteoporosis without current pathological fracture (principal); E83.42 Hypomagnesemia
CPT/HCPCS: 36415; 80048; 83735

== ENCOUNTER 2021-05-06 13:30 | Outpatient (RCR) | payer MEDICARE, OTHER, SELFPAY ==
--- NOTE | 2021-04-04 15:04 | HP.PTEVAL_ITS ---
Patient's Visit Information MARCELLO OKEEFE is a 65 year old F referred to Physical Therapy by Dr. Glenn Figueroa MD with a diagnosis of BPPV. Date of Evaluation: 04/04/21 Physical Therapist: FELIZ Borden - Visit Plan Frequency: 1-2x /Week Duration: 6 Weeks Plan: 1-2X/ week for 6 weeks for progressive VOR exercises, testing of BPPV, balance testing and treatment if appropriate with HEP - Subjective Last Sat she started with throwing up and dizziness and on the floor for 2 days. She was better on Wednesday and stayed in bed laying flat. She could not get into the Dr. She tried some dramamine. She says that her dizziness is not room spinning. Her balance is off also. She is on nausea pills and dizzy pills. When she first got it she was dizzy all the time. She is dizzy when she walks. She can roll over in bed slowly and she does not get dizzy. She has this 3 years ago. She thinks that this is migraine related. She has some pressure in her head and she feels slightly dizzy all the time now but worse when she stand ing or moves her head. Her two eyes do not seem to want to work right and she has to close her. Last night she had a SENIOR. She has no SENIOR now. She is not seeing double vision. Her BP was really good. When laying down she gets dizzy and has to sit for awhile. Pt admits that things moving bother her vision. - Objective Pt comes into the department in a wheelchair pushed by her . Gait: walks pt by the arm to the chair and mat table as pt is unable to walk on her own. Observation: pt squints during the eval and is better when the lights are lowered. Sit to stand: she holds onto the mat table. When asked to get hands off the mat table she has to get a WBOS and has increase veering. Takes her a few seconds to get her bearings to stand. Increase dizziness when she turns her head R and L in standing. Therapists helps to steady her. Vertical Smooth Pursuit: pt has some trouble at first following moving target in a vertical position.... pt had a hard time following the target (pain behind her eyes). Horizontal Smooth Pursuit: pt had decrease ability to track at times but did seem to catch up the mores she did (pain behind her eyes). Pt had increased dizziness with vertical and horizontal head turns slow movement. Did not attempt to check BPPV today as pt said her dizziness in more constant and had decrease balance, ability to walk or move fast without increase dizziness. - Balance/Special Test Scores Dizziness Score: 88 - Goals Goal 1:: I HEP Goal Time Frame: 2-4 Weeks Goal 2:: Be sit and complete 60 seconds of VOR X 1 both horizontal and vertical without getting dizzy Goal Time Frame: 2-4 Weeks Goal 3:: Be able to walk in the community independently again without any dizziness Goal Time Frame: 2-4 Weeks Goal 4:: Test for BPPV - Rehabilitation Potential Rehabilitation Potential: Good - Anticipated Interventions Thank you for the opportunity to evaluate your patient. For Medicare and Medicare HMO plans, please review the plan of care and approve it. It will need to be FAXED BACK to us at [phone] for Medicare purposes. For Medicare only, by signing this I certify the plan of care. Please let me know if there are questions or concerns regarding this plan of care. Physician Signatur e: Date:
--- NOTE | 2021-07-22 08:50 | HP.PTDCSUM ---
It has been my pleasure to treat MARCELLO OKEEFE referred by Dr. Glenn Figueroa MD, with the diagnosis of BPPV for a total of 7 visit(s). Discharge Date: 07/22/21 Please see the following information for a summary of their discharge status. Subjective: Pt feels that she is where she was. She has not had much dizziness. Pt reports that she feels that she is almost better and wants to do exercises at home % Improvement: 100 Objective/Function: Pt gets veering with walking with horizontal head turns Goal 1:: I HEP Goal Progress: Goal Met Goal 2:: Be sit and complete 60 seconds of VOR X 1 both horizontal and vertical without getting dizzy Goal Progress: Goal Met Goal 3:: Be able to walk in the community independently again without any dizziness Goal Progress: Progressing Goal 4:: Test for BPPV Goal 5:: Be able to walk horizontal and vertical head turns without being dizzy Goal Progress: Progressing Plan: Pt to do exerices at home including VOR X 1 vert and horizontal standing on couch cushion and walking with head turns with near by and call in within 2 weeks if better or if she needs us sooner. DC PT as pt did not need further PT Discharge Comments: DC PT If there are questions or concerns regarding this patient's physical therapy, please feel free to call me at [phone]. Thank you for the referral of this patient. Sincerely, Ronit Sorenson, MPT Balance/Gait/Functional tests - Balance/Special Test Scores Dizziness Score: 8
== END 2021-05-06 19:00 | disposition home or self-care (01) ==
LOC: PT 13:30
PROVIDERS: PCP Family Medicine; Referring Provider Family Medicine; Visit Provider Family Medicine
DX: H81.10 Benign paroxysmal vertigo, unspecified ear (principal)
CPT/HCPCS: 97110; 97162

== ENCOUNTER → 2021-07-15 12:02 | Outpatient (CLI) | payer MEDICARE, OTHER, SELFPAY ==
[2021-07-15 15:03] LABS: Erythrocyte Sedimentation Rate 6 mm/hr (0-30)
[2021-07-15 15:05] LABS: Absolute Lymphocyte Count 1.92 X10^3/uL (0.83-4.51); Absolute Neutrophil Count 3.1 X10^3/uL (2.0-7.7); Basophil# 0.08 X10^3/uL; Basophil% 1.4 % (0-1); Eosinophil# 0.09 X10^3/uL; Eosinophils% 1.6 % (0-5); Hematocrit 41.1 % (37-47); Hemoglobin 13.4 g/dL (12.0-15.0); Lymphocyte # 1.92 X10^3/ul (0.83-4.51); Lymphocyte % 33.7 % (19-41); Mean Corp Hgb Conc 32.6 g/dL (32-36); Mean Corpuscular Hgb 32.4 pg (27.0-32.0); Mean Corpuscular Volume 99.3 fL (81-99); Mean Platelet Vol. 10.7 fl (6.2-12.0); Monocyte# 0.47 X10^3/uL; Monocyte% 8.3 % (0-10); NRBC Flagged by Analyzer 0 % (0-5); Neutrophil # 3.12 X10^3/uL (2.7-7.7); Neutrophil % 54.8 % (47-70); Platelet Count 240 K/mm3 (150-450); RBC Distribution Width CV 12.2 % (11.6-14.6); RBC Distribution Width SD 44.8 fl (35.1-43.9); Red Blood Count 4.14 M/mm3 (4.2-5.4); White Blood Count 5.7 K/mm3 (4.4-11.0)
[2021-07-15 15:15] LABS: AST(SGOT) 25 U/L (15-37); Alanine Aminotransfer ALT/SGPT 27 U/L (13-56); Albumin, Serum 3.5 g/dL (3.2-5.0); Alkaline Phosphatase 66 U/L (45-117); Anion Gap 6 (5-15); BUN 16 mg/dL (7-18); CRP < 2.90 mg/L (0.0-3.0); Calcium,Total 8.7 mg/dL (8.5-10.1); Chloride 106 mmol/L (98-107); Creatinine, Serum 0.84 mg/dL (0.55-1.02); EST Glomerular Filtration Rate 71 mL/min (>60); Est Glom Filt Rate - Afr Amer 86 mL/min (>60); Globulin 3.5 g/dL (2.2-4.2); Glucose 82 mg/dL (74-106); Potassium 3.7 mmol/L (3.5-5.1); Sodium Level 140 mmol/L (136-145)
== END ==
PROVIDERS: PCP Family Medicine; Referring Provider Family Medicine; Visit Provider Internal Medicine Rheumatology
DX: M06.4 Inflammatory polyarthropathy (principal); R76.8 Other specified abnormal immunological findings in serum; E03.9 Hypothyroidism, unspecified; M81.0 Age-related osteoporosis without current pathological fracture
CPT/HCPCS: 36415; 80053; 85025; 85652; 86140

== ENCOUNTER → 2021-07-18 10:36 | Outpatient (CLI) | payer MEDICARE, OTHER, SELFPAY ==
[2021-07-18 12:40] LABS: AST(SGOT) 30 U/L (15-37); Alanine Aminotransfer ALT/SGPT 28 U/L (13-56); Albumin, Serum 3.6 g/dL (3.2-5.0); Alkaline Phosphatase 62 U/L (45-117); Anion Gap 5 (5-15); BUN 14 mg/dL (7-18); BUN/Creat Ratio 16.6 RATIO (10-20); Calcium,Total 8.7 mg/dL (8.5-10.1); Chloride 106 mmol/L (98-107); Cholesterol 225 mg/dL (200); Creatinine, Serum 0.84 mg/dL (0.55-1.02); EST Glomerular Filtration Rate 71 mL/min (>60); Est Glom Filt Rate - Afr Amer 86 mL/min (>60); Globulin 3.5 g/dL (2.2-4.2); Glucose 80 mg/dL (74-106); High Density Lipoprotein 80 mg/dL; Magnesium 2.3 mg/dL (1.6-2.6); Potassium 3.8 mmol/L (3.5-5.1); Protein, Total 7.1 g/dL (6.4-8.2); Sodium Level 141 mmol/L (136-145); Thyroid Stim Hormone (TSH) 4.62 uIU/mL (0.358-3.74); Triglycerides 62 mg/dL; Very Low Density Lipoprotein 12 mg/dL (5-40)
== END ==
PROVIDERS: PCP Family Medicine; Referring Provider Family Medicine; Visit Provider Internal Medicine Endocrinology, Diabetes & Metabolism
DX: E78.2 Mixed hyperlipidemia (principal); E89.0 Postprocedural hypothyroidism; M81.0 Age-related osteoporosis without current pathological fracture
CPT/HCPCS: 36415; 80053; 80061; 83735; 84443

== ENCOUNTER 2021-09-04 17:45 | Outpatient (CLI) | payer MEDICARE, OTHER, SELFPAY | END 2021-09-04 23:59 | disposition short-term general hospital (02) | PROVIDERS: PCP Family Medicine; Visit Provider Family Medicine | DX: N39.0 Urinary tract infection, site not specified (principal) | CPT/HCPCS: 87077; 87086; 87088; 87186 ==

== ENCOUNTER 2021-10-27 10:00 | Outpatient (CLI) | payer MEDICARE, OTHER, SELFPAY ==
[2021-10-27 12:14] LABS: Vitamin D,25 Hydroxy 78.2 ng/mL
[2021-10-27 12:42] LABS: AST(SGOT) 25 U/L (15-37); Alanine Aminotransfer ALT/SGPT 25 U/L (13-56); Albumin, Serum 3.7 g/dL (3.2-5.0); Alkaline Phosphatase 63 U/L (45-117); Anion Gap 4 (5-15); BUN 15 mg/dL (7-18); BUN/Creat Ratio 15.3 RATIO (10-20); Calcium,Total 8.8 mg/dL (8.5-10.1); Chloride 105 mmol/L (98-107); Cholesterol 225 mg/dL (200); Creatinine, Serum 0.98 mg/dL (0.55-1.02); EST Glomerular Filtration Rate 60 mL/min (>60); Est Glom Filt Rate - Afr Amer 72 mL/min (>60); Globulin 3.6 g/dL (2.2-4.2); Glucose 85 mg/dL (74-106); High Density Lipoprotein 72 mg/dL; Potassium 3.7 mmol/L (3.5-5.1); Protein, Total 7.3 g/dL (6.4-8.2); Sodium Level 140 mmol/L (136-145); Thyroid Stim Hormone (TSH) 1.24 uIU/mL (0.358-3.74); Triglycerides 71 mg/dL; Very Low Density Lipoprotein 14 mg/dL (5-40)
== END 2021-10-27 23:59 | disposition home or self-care (01) ==
LOC: MFPLAB 10:03
PROVIDERS: PCP Family Medicine; Referring Provider Family Medicine; Visit Provider Internal Medicine Endocrinology, Diabetes & Metabolism
DX: E89.0 Postprocedural hypothyroidism (principal); E78.2 Mixed hyperlipidemia; E55.9 Vitamin D deficiency, unspecified
CPT/HCPCS: 36415; 80053; 80061; 82306; 84443

== ENCOUNTER → 2022-01-01 | Outpatient (CLI) | payer MEDICARE, OTHER, SELFPAY ==
[2022-01-01 17:45] LABS: Absolute Lymphocyte Count 2.17 X10^3/uL (0.83-4.51); Absolute Neutrophil Count 3.7 X10^3/uL (2.0-7.7); Basophil# 0.07 X10^3/uL; Basophil% 1.1 % (0-1); Eosinophil# 0.09 X10^3/uL; Eosinophils% 1.4 % (0-5); Hematocrit 39.8 % (37-47); Hemoglobin 12.7 g/dL (12.0-15.0); Lymphocyte # 2.17 X10^3/ul (0.83-4.51); Lymphocyte % 32.7 % (19-41); Mean Corp Hgb Conc 31.9 g/dL (32-36); Mean Corpuscular Hgb 31.8 pg (27.0-32.0); Mean Corpuscular Volume 99.7 fL (81-99); Mean Platelet Vol. 10.5 fl (6.2-12.0); Monocyte# 0.59 X10^3/uL; Monocyte% 8.9 % (0-10); NRBC Flagged by Analyzer 0 % (0-5); Neutrophil % 55.6 % (47-70); Platelet Count 238 K/mm3 (150-450); RBC Distribution Width SD 44.5 fl (35.1-43.9); Red Blood Count 3.99 M/mm3 (4.2-5.4); White Blood Count 6.6 K/mm3 (4.4-11.0)
[2022-01-01 18:23] LABS: AST(SGOT) 23 U/L (15-37); Alanine Aminotransfer ALT/SGPT 23 U/L (13-56); Albumin, Serum 3.5 g/dL (3.2-5.0); Alkaline Phosphatase 63 U/L (45-117); Anion Gap 4 (5-15); BUN 17 mg/dL (7-18); BUN/Creat Ratio 18.8 RATIO (10-20); Chloride 106 mmol/L (98-107); Creatinine, Serum 0.91 mg/dL (0.55-1.02); EST Glomerular Filtration Rate 66 mL/min (>60); Est Glom Filt Rate - Afr Amer 79 mL/min (>60); Globulin 3.4 g/dL (2.2-4.2); Glucose 84 mg/dL (74-106); Potassium 3.7 mmol/L (3.5-5.1); Protein, Total 6.9 g/dL (6.4-8.2); Sodium Level 141 mmol/L (136-145)
== END | disposition home or self-care (01) ==
LOC: MFPLAB 15:08
PROVIDERS: PCP Family Medicine; Referring Provider Family Medicine; Visit Provider Internal Medicine Rheumatology
DX: M06.4 Inflammatory polyarthropathy (principal); E03.9 Hypothyroidism, unspecified; M81.0 Age-related osteoporosis without current pathological fracture; R76.8 Other specified abnormal immunological findings in serum
CPT/HCPCS: 36415; 80053; 85025

== ENCOUNTER → 2022-02-27 | Outpatient (CLI) | payer MEDICARE, OTHER, SELFPAY ==
[2022-02-27 12:33] LABS: AST(SGOT) 30 U/L (15-37); Alanine Aminotransfer ALT/SGPT 24 U/L (13-56); Albumin, Serum 3.5 g/dL (3.2-5.0); Alkaline Phosphatase 69 U/L (45-117); Anion Gap 5 (5-15); BUN 12 mg/dL (7-18); BUN/Creat Ratio 12.2 RATIO (10-20); Calcium,Total 9.1 mg/dL (8.5-10.1); Chloride 106 mmol/L (98-107); Cholesterol 212 mg/dL (200); Creatinine, Serum 0.98 mg/dL (0.55-1.02); EST Glomerular Filtration Rate 60 mL/min (>60); Est Glom Filt Rate - Afr Amer 72 mL/min (>60); Globulin 3.6 g/dL (2.2-4.2); Glucose 90 mg/dL (74-106); High Density Lipoprotein 67 mg/dL; Magnesium 2.2 mg/dL (1.6-2.6); Protein, Total 7.1 g/dL (6.4-8.2); Sodium Level 140 mmol/L (136-145); Thyroid Stim Hormone (TSH) 1.68 uIU/mL (0.358-3.74); Triglycerides 114 mg/dL; Very Low Density Lipoprotein 23 mg/dL (5-40)
== END | disposition home or self-care (01) ==
LOC: MFPLAB 09:54
PROVIDERS: PCP Family Medicine; Referring Provider Family Medicine; Visit Provider Internal Medicine Endocrinology, Diabetes & Metabolism
DX: E89.0 Postprocedural hypothyroidism (principal); E83.42 Hypomagnesemia; E78.2 Mixed hyperlipidemia
CPT/HCPCS: 36415; 80053; 80061; 83735; 84443

== ENCOUNTER → 2022-07-07 | Outpatient (CLI) | payer MEDICARE, OTHER, SELFPAY ==
[2022-07-07 15:11] LABS: Absolute Lymphocyte Count 1.65 X10^3/uL (0.83-4.51); Absolute Neutrophil Count 5.6 X10^3/uL (2.0-7.7); Basophil# 0.07 X10^3/uL; Basophil% 0.9 % (0-1); Eosinophil# 0.08 X10^3/uL; Hematocrit 42.4 % (37-47); Hemoglobin 13.3 g/dL (12.0-15.0); Lymphocyte # 1.65 X10^3/ul (0.83-4.51); Lymphocyte % 20.5 % (19-41); Mean Corp Hgb Conc 31.4 g/dL (32-36); Mean Corpuscular Hgb 31.3 pg (27.0-32.0); Mean Corpuscular Volume 99.8 fL (81-99); Mean Platelet Vol. 10.4 fl (6.2-12.0); Monocyte# 0.62 X10^3/uL; Monocyte% 7.7 % (0-10); NRBC Flagged by Analyzer 0 % (0-5); Neutrophil # 5.59 X10^3/uL (2.7-7.7); Neutrophil % 69.5 % (47-70); Platelet Count 247 K/mm3 (150-450); RBC Distribution Width CV 13.2 % (11.6-14.6); RBC Distribution Width SD 48.6 fl (35.1-43.9); Red Blood Count 4.25 M/mm3 (4.2-5.4)
[2022-07-07 15:21] LABS: ALB/GLOB Ratio 1.1 RATIO (0.9-2.4); AST(SGOT) 34 U/L (15-37); Alanine Aminotransfer ALT/SGPT 35 U/L (13-56); Albumin, Serum 3.5 g/dL (3.2-5.0); Alkaline Phosphatase 68 U/L (45-117); Anion Gap 8 (5-15); BUN 15 mg/dL (7-18); BUN/Creat Ratio 15.6 RATIO (10-20); Calcium,Total 8.7 mg/dL (8.5-10.1); Chloride 102 mmol/L (98-107); Creatinine, Serum 0.96 mg/dL (0.55-1.02); EST Glomerular Filtration Rate 61 mL/min (>60); Est Glom Filt Rate - Afr Amer 74 mL/min (>60); Globulin 3.1 g/dL (2.2-4.2); Glucose 80 mg/dL (74-106); Potassium 3.9 mmol/L (3.5-5.1); Protein, Total 6.6 g/dL (6.4-8.2); Sodium Level 139 mmol/L (136-145)
== END | disposition home or self-care (01) ==
LOC: MFPLAB 11:39
PROVIDERS: PCP Family Medicine; Visit Provider Internal Medicine Rheumatology
DX: M06.4 Inflammatory polyarthropathy (principal); R76.8 Other specified abnormal immunological findings in serum; E03.9 Hypothyroidism, unspecified; M81.0 Age-related osteoporosis without current pathological fracture
CPT/HCPCS: 36415; 80053; 85025

== ENCOUNTER → 2022-08-28 | Outpatient (CLI) | payer MEDICARE, OTHER, SELFPAY ==
--- NOTE | 2022-08-28 09:49 | BI_ITS ---
MAMMOGRAPHY - BILATERAL SCREENING REASON FOR EXAM: Female, 67 years old. Routine annual screening examination. PERTINENT HISTORY: Non-contributory. TECHNIQUE: Digital bilateral breast pili (3D mammographic acquisition) in the CC and MLO projections. 2-D mediolateral oblique (MLO) and craniocaudad (CC) views of both breasts were obtained. CAD: Full Field Digital Mammography with Computer Added Detection was performed. COMPARISON: No comparison mammograms available at this time. If any prior films become available, an addendum to this report can be generated. FINDINGS: Breast Composition: The breasts are extremely dense, which lowers the sensitivity of mammography. There are no dominant masses or suspicious calcifications. No other significant abnormalities are identified. BI/SCRN MAMM (CAD)W/PILI BILAT IMPRESSION: Negative screening mammogram. Yearly followup mammogram recommended. (A) ASSESSMENT CATEGORY: BIRADS Category 1: Negative. A letter regarding these results will be sent to the patient by the facility within 30 days. Approximately 10% of breast cancers are not detected by mammography. A normal mammogram should not delay biopsy of a clinically suspicious abnormality. [id number] Electronically Signed: Vargas Monson MD at 15:27 EST ,
== END | disposition home or self-care (01) ==
LOC: OPBI 09:49
PROVIDERS: PCP Family Medicine; Visit Provider Nurse Practitioner Family
DX: Z12.31 Encounter for screening mammogram for malignant neoplasm of breast (principal)
CPT/HCPCS: 77063; 77067

== ENCOUNTER → 2022-09-07 | Outpatient (CLI) | payer MEDICARE, OTHER, SELFPAY ==
[2022-09-07 16:33] LABS: ALB/GLOB Ratio 0.9 RATIO (0.9-2.4); AST(SGOT) 25 U/L (15-37); Alanine Aminotransfer ALT/SGPT 22 U/L (13-56); Albumin, Serum 3.5 g/dL (3.2-5.0); Alkaline Phosphatase 61 U/L (45-117); Anion Gap 9 (5-15); BUN 13 mg/dL (7-18); BUN/Creat Ratio 13.9 RATIO (10-20); Calcium,Total 9.1 mg/dL (8.5-10.1); Chloride 105 mmol/L (98-107); Creatinine, Serum 0.93 mg/dL (0.55-1.02); EST Glomerular Filtration Rate 63 mL/min (>60); Est Glom Filt Rate - Afr Amer 77 mL/min (>60); Globulin 3.7 g/dL (2.2-4.2); Glucose 89 mg/dL (74-106); Potassium 3.6 mmol/L (3.5-5.1); Protein, Total 7.2 g/dL (6.4-8.2); Sodium Level 141 mmol/L (136-145); Thyroid Stim Hormone (TSH) 0.58 uIU/mL (0.358-3.74)
[2022-09-07 18:33] LABS: Vitamin D,25 Hydroxy 75.2 ng/mL
[2022-09-08 08:28] LABS: PTHIN 35.9 pg/mL (18.4-80.1)
== END | disposition home or self-care (01) ==
LOC: MFPLAB 13:51
PROVIDERS: PCP Family Medicine; Visit Provider Internal Medicine Endocrinology, Diabetes & Metabolism
DX: E89.0 Postprocedural hypothyroidism (principal); E55.9 Vitamin D deficiency, unspecified
CPT/HCPCS: 36415; 80053; 82306; 83735; 83970; 84443

== ENCOUNTER → 2022-12-25 | Outpatient (CLI) | payer MEDICARE, OTHER, SELFPAY ==
[2022-12-25 15:19] LABS: Absolute Lymphocyte Count 1.88 X10^3/uL (0.83-4.51); Absolute Neutrophil Count 2.8 X10^3/uL (2.0-7.7); Basophil# 0.05 X10^3/uL; Basophil% 0.9 % (0-1); Eosinophil# 0.07 X10^3/uL; Eosinophils% 1.3 % (0-5); Hematocrit 42.6 % (37-47); Hemoglobin 13.8 g/dL (12.0-15.0); Lymphocyte # 1.88 X10^3/ul (0.83-4.51); Lymphocyte % 35.7 % (19-41); Mean Corp Hgb Conc 32.4 g/dL (32-36); Mean Corpuscular Hgb 32.1 pg (27.0-32.0); Mean Corpuscular Volume 99.1 fL (81-99); Mean Platelet Vol. 10.4 fl (6.2-12.0); Monocyte# 0.44 X10^3/uL; Monocyte% 8.3 % (0-10); NRBC Flagged by Analyzer 0 % (0-5); Neutrophil # 2.82 X10^3/uL (2.7-7.7); Neutrophil % 53.6 % (47-70); Platelet Count 228 K/mm3 (150-450); RBC Distribution Width CV 12.1 % (11.6-14.6); RBC Distribution Width SD 44.3 fl (35.1-43.9); White Blood Count 5.3 K/mm3 (4.4-11.0)
[2022-12-25 15:26] LABS: ALB/GLOB Ratio 1.1 RATIO (0.9-2.4); AST(SGOT) 29 U/L (15-37); Alanine Aminotransfer ALT/SGPT 21 U/L (13-56); Albumin, Serum 3.6 g/dL (3.2-5.0); Alkaline Phosphatase 57 U/L (45-117); Anion Gap 6 (5-15); BUN 18 mg/dL (7-18); Calcium,Total 9.2 mg/dL (8.5-10.1); Chloride 103 mmol/L (98-107); EST Glomerular Filtration Rate 66 mL/min (>60); Est Glom Filt Rate - Afr Amer 80 mL/min (>60); Globulin 3.4 g/dL (2.2-4.2); Glucose 76 mg/dL (74-106); Potassium 3.5 mmol/L (3.5-5.1); Sodium Level 139 mmol/L (136-145)
== END | disposition home or self-care (01) ==
LOC: MFPLAB 11:42
PROVIDERS: PCP Family Medicine; Visit Provider Internal Medicine Rheumatology
DX: M06.4 Inflammatory polyarthropathy (principal); R76.8 Other specified abnormal immunological findings in serum
CPT/HCPCS: 36415; 80053; 85025

== ENCOUNTER → 2023-04-30 | Outpatient (CLI) | payer MEDICARE, OTHER, SELFPAY ==
[2023-04-30 18:24] LABS: ALB/GLOB Ratio 1.1 RATIO (0.9-2.4); AST(SGOT) 24 U/L (15-37); Alanine Aminotransfer ALT/SGPT 23 U/L (13-56); Albumin, Serum 3.5 g/dL (3.2-5.0); Alkaline Phosphatase 64 U/L (45-117); Anion Gap 5 (5-15); BUN 17 mg/dL (7-18); Calcium,Total 8.5 mg/dL (8.5-10.1); Chloride 107 mmol/L (98-107); Creatinine, Serum 0.77 mg/dL (0.55-1.02); EST Glomerular Filtration Rate 79 mL/min (>60); Est Glom Filt Rate - Afr Amer 95 mL/min (>60); Globulin 3.3 g/dL (2.2-4.2); Glucose 78 mg/dL (74-106); Potassium 3.8 mmol/L (3.5-5.1); Protein, Total 6.8 g/dL (6.4-8.2); Sodium Level 139 mmol/L (136-145); Thyroid Stim Hormone (TSH) 1.55 uIU/mL (0.358-3.74)
[2023-04-30 18:42] LABS: Vitamin D,25 Hydroxy 76.4 ng/mL
== END | disposition home or self-care (01) ==
LOC: MFPLAB 16:05
PROVIDERS: PCP Family Medicine; Visit Provider Nurse Practitioner Adult Health
DX: E89.0 Postprocedural hypothyroidism (principal); E55.9 Vitamin D deficiency, unspecified
CPT/HCPCS: 36415; 80053; 82306; 84443

== ENCOUNTER → 2023-06-10 | Outpatient (CLI) | payer MEDICARE, OTHER, SELFPAY ==
[2023-06-10 17:39] LABS: Absolute Lymphocyte Count 1.74 X10^3/uL (0.83-4.51); Absolute Neutrophil Count 3.2 X10^3/uL (2.0-7.7); Basophil# 0.06 X10^3/uL; Basophil% 1.1 % (0-1); Eosinophil# 0.05 X10^3/uL; Eosinophils% 0.9 % (0-5); Hematocrit 42.7 % (37-47); Hemoglobin 13.8 g/dL (12.0-15.0); Lymphocyte # 1.74 X10^3/ul (0.83-4.51); Lymphocyte % 31.4 % (19-41); Mean Corp Hgb Conc 32.3 g/dL (32-36); Mean Corpuscular Hgb 32.2 pg (27.0-32.0); Mean Corpuscular Volume 99.8 fL (81-99); Mean Platelet Vol. 10.6 fl (6.2-12.0); Monocyte# 0.44 X10^3/uL; Monocyte% 7.9 % (0-10); NRBC Flagged by Analyzer 0 % (0-5); Neutrophil # 3.24 X10^3/uL (2.7-7.7); Neutrophil % 58.5 % (47-70); Platelet Count 223 K/mm3 (150-450); RBC Distribution Width CV 12.4 % (11.6-14.6); RBC Distribution Width SD 45.4 fl (35.1-43.9); Red Blood Count 4.28 M/mm3 (4.2-5.4); White Blood Count 5.5 K/mm3 (4.4-11.0)
[2023-06-10 17:50] LABS: AST(SGOT) 22 U/L (15-37); Alanine Aminotransfer ALT/SGPT 24 U/L (13-56); Albumin, Serum 3.5 g/dL (3.2-5.0); Alkaline Phosphatase 67 U/L (45-117); Anion Gap 6 (5-15); BUN 19 mg/dL (7-18); BUN/Creat Ratio 20.2 RATIO (10-20); Calcium,Total 9.1 mg/dL (8.5-10.1); Chloride 105 mmol/L (98-107); Creatinine, Serum 0.94 mg/dL (0.55-1.02); EST Glomerular Filtration Rate 63 mL/min (>60); Est Glom Filt Rate - Afr Amer 76 mL/min (>60); Globulin 3.5 g/dL (2.2-4.2); Glucose 122 mg/dL (74-106); Potassium 3.7 mmol/L (3.5-5.1); Sodium Level 139 mmol/L (136-145)
== END | disposition home or self-care (01) ==
LOC: MFPLAB 15:58
PROVIDERS: PCP Family Medicine; Visit Provider Internal Medicine Rheumatology
DX: M06.4 Inflammatory polyarthropathy (principal); R76.8 Other specified abnormal immunological findings in serum
CPT/HCPCS: 36415; 80053; 85025

== ENCOUNTER → 2023-06-21 | Outpatient (CLI) | payer MEDICARE, OTHER, SELFPAY ==
--- NOTE | 2023-06-21 15:00 | RAD_ITS ---
EXAM: XR RIGHT ANKLE COMPLETE, 3 OR MORE VIEWS CLINICAL INDICATION: pain, injury--pain over distal fibula, atfl and deltoid TECHNIQUE: Frontal, lateral and oblique views of the right ankle. COMPARISON: No relevant prior studies available. FINDINGS: BONES/JOINTS: Calcification in the expected location of the distal Achilles tendon perhaps a remotely ruptured calcaneal enthesophyte. No acute fracture. No subluxation. Normal alignment. Preservation of the joint space. No sclerotic or destructive changes observed. SOFT TISSUES: Soft tissue swelling. No radiopaque foreign body. RAD/Ankle min 3 Views IMPRESSION: 1. Soft tissue swelling. No evidence of an acute fracture. 2. Calcification in the expected location of the distal Achilles tendon perhaps a remotely ruptured calcaneal enthesophyte. No significant swelling or Achilles tendon thickening to suggest acute injury. Electronically Signed: Griffin Bell DO at 22:24 EST ,
== END | disposition home or self-care (01) ==
LOC: MTRAD 14:46
PROVIDERS: PCP Family Medicine; Referring Provider Family Medicine; Visit Provider Family Medicine
DX: M25.571 Pain in right ankle and joints of right foot (principal)
CPT/HCPCS: 73610

== ENCOUNTER → 2023-09-29 | Outpatient (CLI) | payer MEDICARE, OTHER, SELFPAY ==
[2023-09-29 17:50] LABS: Anion Gap 4 (5-15); BUN 24 mg/dL (7-18); BUN/Creat Ratio 23.3 RATIO (10-20); Calcium,Total 9.2 mg/dL (8.5-10.1); Chloride 107 mmol/L (98-107); Creatinine, Serum 1.03 mg/dL (0.55-1.02); EST Glomerular Filtration Rate 56 mL/min (>60); Est Glom Filt Rate - Afr Amer 68 mL/min (>60); Glucose 86 mg/dL (74-106); Potassium 3.9 mmol/L (3.5-5.1); Sodium Level 141 mmol/L (136-145)
--- OUTSIDE RECORDS SUMMARY | 2023-09-29 19:49 | XMS RPT_ITS | CCD ---
Author Name Unknown Address [address] [place] [address] Organization [facility] Care Team Providers Care Knife Edger Name Role Phone Beckie Wiggins Unavailable Unavailable BECKIE WIGGINS Unavailable Unavailable NASIM TOLEDO Unavailable UnavailBECKIE Paredes Unavailable Unavailable NICOLE ACOSTA Unavailable Unavailable SABINA SQUIRES Unavailable Unavailable BECKIE WIGGINS Unavailable Unavailable Problems Problem Classification Problem Date Documented Da te Episodic/Chronic Thyroid disorders (1 source) Non-toxic multinodular goiter Onset: 03-17-2018 Chronic Unclassified (1 source) Unknown / UNK(Unknown) Onset: 03-17-2018 Results Test Name Value Interpretation Reference Range Facil ity Encounters Encounter Date Encounter Type Care Provider Facility Start: 04-13-2018 End: 04-14-2018 Patient encounter procedure BECKIE PARISN Facility:A Start: 03-17-2018 Evaluation and manag ement of inpatient Beckie Wiggins Facility:[facility] Payers Date Payer Category Payer Medicare [id number] 2017 Unknown [id number] 1955 Unknown [id number] Summary Purpose Family History No Family History Records FoundNo Family History Records Found Advance Directives No Advanced Directives Records FoundNo Advanced Directives Records Found Additional Source Comments INFORMATION SOURCE (unrecogn ized section and content) DATE CREATED AUTHOR AUTHOR'S ORGANIZ ATION 07/21/2018 [facility] ([place]) FOR RECORDS PERTAINING TO PATIENTS WHO ARE OR HAVE BEEN ENROLLED IN A CHEMICAL DEPENDENCY/SUBSTANCEABUSE PROGRAM, SOME INFORMATION MAY BE OMITTED. This clinical summary was aggregated from multiple sources. Caution should be exercised in using it in the provision of clinical care. This summary normalizes information from multiple sources, and as a consequence, information in this document may materially change the coding, format and clinical context of patient data. In addition, data may be omitted in some cases. CLINICAL DECISIONS SHOULD BE BASED ON THE PRIMARY CLINICAL RECORDS. [facility] [employer] [facility] provides no warranty or guarantee of the accuracy or completeness of information in this document.
== END | disposition home or self-care (01) ==
LOC: MFPLAB 16:11
PROVIDERS: PCP Family Medicine; Visit Provider Family Medicine
DX: M81.0 Age-related osteoporosis without current pathological fracture (principal)
CPT/HCPCS: 36415; 80048

== ENCOUNTER → 2023-12-07 | Outpatient (CLI) | payer MEDICARE, OTHER, SELFPAY ==
[2023-12-07 12:42] LABS: Absolute Lymphocyte Count 1.88 X10^3/uL (0.83-4.51); Absolute Neutrophil Count 2.5 X10^3/uL (2.0-7.7); Basophil# 0.09 X10^3/uL; Basophil% 1.8 % (0-1); Eosinophil# 0.08 X10^3/uL; Eosinophils% 1.6 % (0-5); Hematocrit 42.3 % (37-47); Hemoglobin 13.7 g/dL (12.0-15.0); Lymphocyte # 1.88 X10^3/ul (0.83-4.51); Mean Corp Hgb Conc 32.4 g/dL (32-36); Mean Corpuscular Hgb 32.1 pg (27.0-32.0); Mean Corpuscular Volume 99.1 fL (81-99); Mean Platelet Vol. 10.9 fl (6.2-12.0); Monocyte% 8.1 % (0-10); NRBC Flagged by Analyzer 0 % (0-5); Neutrophil # 2.49 X10^3/uL (2.7-7.7); Neutrophil % 50.3 % (47-70); Platelet Count 207 K/mm3 (150-450); RBC Distribution Width CV 12.6 % (11.6-14.6); RBC Distribution Width SD 45.8 fl (35.1-43.9); Red Blood Count 4.27 M/mm3 (4.2-5.4)
[2023-12-07 13:22] LABS: AST(SGOT) 22 U/L (15-37); Alanine Aminotransfer ALT/SGPT 19 U/L (13-56); Albumin, Serum 3.4 g/dL (3.2-5.0); Alkaline Phosphatase 61 U/L (45-117); Anion Gap 4 (5-15); BUN 15 mg/dL (7-18); BUN/Creat Ratio 15.4 RATIO (10-20); Chloride 107 mmol/L (98-107); Creatinine, Serum 0.98 mg/dL (0.55-1.02); EST Glomerular Filtration Rate 60 mL/min (>60); Est Glom Filt Rate - Afr Amer 72 mL/min (>60); Globulin 3.3 g/dL (2.2-4.2); Glucose 112 mg/dL (74-106); Potassium 3.8 mmol/L (3.5-5.1); Protein, Total 6.7 g/dL (6.4-8.2); Sodium Level 140 mmol/L (136-145)
== END | disposition home or self-care (01) ==
LOC: MTLAB 09:51
PROVIDERS: PCP Family Medicine; Referring Provider Internal Medicine Rheumatology; Visit Provider Internal Medicine Rheumatology
DX: M06.4 Inflammatory polyarthropathy (principal); R76.8 Other specified abnormal immunological findings in serum
CPT/HCPCS: 36415; 80053; 85025

== ENCOUNTER → 2024-02-23 | Outpatient (CLI) | payer MEDICARE, OTHER, SELFPAY ==
[2024-02-23 17:53] LABS: Vitamin D,25 Hydroxy 64.9 ng/mL
[2024-02-23 18:05] LABS: AST(SGOT) 26 U/L (15-37); Alanine Aminotransfer ALT/SGPT 26 U/L (13-56); Albumin, Serum 3.5 g/dL (3.2-5.0); Alkaline Phosphatase 78 U/L (45-117); Anion Gap 6 (5-15); BUN 17 mg/dL (7-18); Chloride 105 mmol/L (98-107); Creatinine, Serum 0.89 mg/dL (0.55-1.02); EST Glomerular Filtration Rate 66 mL/min (>60); Est Glom Filt Rate - Afr Amer 80 mL/min (>60); Globulin 3.4 g/dL (2.2-4.2); Glucose 84 mg/dL (74-106); Potassium 3.4 mmol/L (3.5-5.1); Protein, Total 6.9 g/dL (6.4-8.2); Sodium Level 142 mmol/L (136-145); Thyroid Stim Hormone (TSH) 1.13 uIU/mL (0.358-3.74)
== END | disposition home or self-care (01) ==
LOC: MTLAB 15:12
PROVIDERS: PCP Family Medicine; Referring Provider Internal Medicine Endocrinology, Diabetes & Metabolism; Visit Provider Internal Medicine Endocrinology, Diabetes & Metabolism
DX: M81.0 Age-related osteoporosis without current pathological fracture (principal); E89.0 Postprocedural hypothyroidism; E55.9 Vitamin D deficiency, unspecified
CPT/HCPCS: 36415; 80053; 82306; 84443

== ENCOUNTER → 2024-06-12 | Outpatient (CLI) | payer MEDICARE, OTHER, SELFPAY ==
[2024-06-12 12:37] LABS: Absolute Lymphocyte Count 1.94 X10^3/uL (0.83-4.51); Absolute Neutrophil Count 3.1 X10^3/uL (2.0-7.7); Basophil# 0.07 X10^3/uL; Basophil% 1.2 % (0-1); Eosinophils% 1.7 % (0-5); Hematocrit 43.6 % (37-47); Hemoglobin 13.9 g/dL (12.0-15.0); Lymphocyte # 1.94 X10^3/ul (0.83-4.51); Lymphocyte % 33.8 % (19-41); Mean Corp Hgb Conc 31.9 g/dL (32-36); Mean Corpuscular Hgb 31.4 pg (27.0-32.0); Mean Corpuscular Volume 98.6 fL (81-99); Mean Platelet Vol. 10.1 fl (6.2-12.0); Monocyte# 0.47 X10^3/uL; Monocyte% 8.2 % (0-10); NRBC Flagged by Analyzer 0 % (0-5); Neutrophil # 3.13 X10^3/uL (2.7-7.7); Neutrophil % 54.6 % (47-70); Platelet Count 311 K/mm3 (150-450); RBC Distribution Width CV 12.4 % (11.6-14.6); RBC Distribution Width SD 45.2 fl (35.1-43.9); Red Blood Count 4.42 M/mm3 (4.2-5.4); White Blood Count 5.7 K/mm3 (4.4-11.0)
[2024-06-12 13:04] LABS: AST(SGOT) 22 U/L (15-37); Alanine Aminotransfer ALT/SGPT 20 U/L (13-56); Albumin, Serum 3.5 g/dL (3.2-5.0); Alkaline Phosphatase 67 U/L (45-117); Anion Gap 6 (5-15); BUN 13 mg/dL (7-18); BUN/Creat Ratio 14.7 RATIO (10-20); Calcium,Total 9.3 mg/dL (8.5-10.1); Chloride 104 mmol/L (98-107); Creatinine, Serum 0.89 mg/dL (0.55-1.02); EST Glomerular Filtration Rate 67 mL/min (>60); Est Glom Filt Rate - Afr Amer 81 mL/min (>60); Globulin 3.4 g/dL (2.2-4.2); Glucose 102 mg/dL (74-106); Potassium 3.8 mmol/L (3.5-5.1); Protein, Total 6.9 g/dL (6.4-8.2); Sodium Level 139 mmol/L (136-145)
== END | disposition home or self-care (01) ==
PROVIDERS: PCP Family Medicine; Referring Provider Internal Medicine Rheumatology; Visit Provider Internal Medicine Rheumatology
DX: M06.4 Inflammatory polyarthropathy (principal); E03.9 Hypothyroidism, unspecified; M81.0 Age-related osteoporosis without current pathological fracture; R76.8 Other specified abnormal immunological findings in serum
CPT/HCPCS: 36415; 80053; 85025

== ENCOUNTER → 2024-09-06 | Outpatient (CLI) | payer MEDICARE, OTHER, SELFPAY ==
[2024-09-06 10:57] LABS: ALB/GLOB Ratio 1.1 RATIO (0.9-2.4); AST(SGOT) 21 U/L (15-37); Alanine Aminotransfer ALT/SGPT 20 U/L (13-56); Albumin, Serum 3.7 g/dL (3.2-5.0); Alkaline Phosphatase 57 U/L (45-117); Anion Gap 8 (5-15); BUN 20 mg/dL (7-18); BUN/Creat Ratio 21.5 RATIO (10-20); Calcium,Total 9.3 mg/dL (8.5-10.1); Chloride 105 mmol/L (98-107); Cholesterol 202 mg/dL (200); Creatinine, Serum 0.93 mg/dL (0.55-1.02); EST Glomerular Filtration Rate 63 mL/min (>60); Est Glom Filt Rate - Afr Amer 76 mL/min (>60); Globulin 3.5 g/dL (2.2-4.2); Glucose 84 mg/dL (74-106); High Density Lipoprotein 77 mg/dL; Magnesium 2.3 mg/dL (1.6-2.6); Protein, Total 7.2 g/dL (6.4-8.2); Sodium Level 140 mmol/L (136-145); Thyroid Stim Hormone (TSH) 0.395 uIU/mL (0.358-3.740); Triglycerides 75 mg/dL; Very Low Density Lipoprotein 15 mg/dL (5-40)
== END | disposition home or self-care (01) ==
LOC: MTLAB 08:30
PROVIDERS: PCP Family Medicine; Referring Provider Internal Medicine Endocrinology, Diabetes & Metabolism; Visit Provider Internal Medicine Endocrinology, Diabetes & Metabolism
DX: E78.2 Mixed hyperlipidemia (principal); E83.42 Hypomagnesemia; E89.0 Postprocedural hypothyroidism
CPT/HCPCS: 36415; 80053; 80061; 83735; 84443

== ENCOUNTER → 2024-12-05 | Outpatient (CLI) | payer MEDICARE, OTHER, SELFPAY ==
[2024-12-05 15:18] LABS: Absolute Lymphocyte Count 2.11 X10^3/uL (0.83-4.51); Absolute Neutrophil Count 2.5 X10^3/uL (2.0-7.7); Basophil# 0.07 X10^3/uL; Basophil% 1.3 % (0-1); Eosinophils% 1.9 % (0-5); Hematocrit 39.1 % (37-47); Hemoglobin 12.7 g/dL (12.0-15.0); Lymphocyte # 2.11 X10^3/ul (0.83-4.51); Lymphocyte % 39.7 % (19-41); Mean Corp Hgb Conc 32.5 g/dL (32-36); Mean Corpuscular Hgb 31.8 pg (27.0-32.0); Mean Platelet Vol. 11.1 fl (6.2-12.0); Monocyte# 0.57 X10^3/uL; Monocyte% 10.7 % (0-10); NRBC Flagged by Analyzer 0 % (0-5); Neutrophil # 2.46 X10^3/uL (2.7-7.7); Neutrophil % 46.2 % (47-70); Platelet Count 206 K/mm3 (150-450); RBC Distribution Width CV 12.9 % (11.6-14.6); RBC Distribution Width SD 46.4 fl (35.1-43.9); Red Blood Count 3.99 M/mm3 (4.2-5.4); White Blood Count 5.3 K/mm3 (4.4-11.0)
[2024-12-05 15:40] LABS: ALB/GLOB Ratio 1.6 RATIO (0.9-2.4); AST(SGOT) 40 U/L (<=31); Alanine Aminotransfer ALT/SGPT 20 U/L (<=34); Albumin, Serum 4.1 g/dL (3.4-4.8); Alkaline Phosphatase 60 U/L (35-104); Anion Gap 10 (5-15); BUN 16 mg/dL (4-19); BUN/Creat Ratio 18.2 RATIO (10-20); Calcium,Total 9.3 mg/dL (7.6-11.0); Carbon Dioxide 26.3 mmol/L (21.0-32.0); Chloride 106 mmol/L (98-108); Creatinine, Serum 0.89 mg/dL (0.70-1.20); EST Glomerular Filtration Rate 69 (>60); Globulin 2.5 g/dL (2.2-4.2); Glucose 71 mg/dL (70-99); Potassium 3.9 mmol/L (3.3-5.1); Protein, Total 6.6 g/dL (5.9-8.4); Sodium Level 142 mmol/L (133-145)
== END | disposition home or self-care (01) ==
LOC: MTLAB 12:45
PROVIDERS: PCP Family Medicine; Referring Provider Internal Medicine Rheumatology; Visit Provider Internal Medicine Rheumatology
DX: M06.4 Inflammatory polyarthropathy (principal); R76.8 Other specified abnormal immunological findings in serum; Z79.899 Other long term (current) drug therapy
CPT/HCPCS: 36415; 80053; 85025